=== PATIENT | male | born 1960 | race American Indian/Alaskan Native ===

== ENCOUNTER → 2017-05-29 | Outpatient (CLI) | payer MEDICARE ==
[2017-05-29 11:03] LABS: ALBUMIN/GLOBULIN RATIO 1.54 (1.00-1.93); ALKALINE PHOSPHATASE 65 U/L (45-117); ALT/SGPT 22 U/L (12-78); ANION GAP 5 MEQ/L (8-16); AST/SGOT 7 U/L (7-37); BLOOD UREA NITROGEN 11 MG/DL (7-18); CALCIUM LEVEL 9.2 MG/DL (8.5-10.1); CARBON DIOXIDE LEVEL 30 MEQ/L (21-32); CHLORIDE LEVEL 106 MEQ/L (98-107); CHOLESTEROL LEVEL 192 MG/DL (<200); CHOLESTEROL RISK RATIO 3.368 (<5); GLOMERULAR FILTRATION RATE > 60.0 (>56); GLUCOSE, FASTING 117 MG/DL (70-100); HDL CHOLESTEROL 57 MG/DL (>40); LDL CHOLESTEROL 104.8 MG/DL (<100); NON-HDL-C 135 MG/DL; POTASSIUM SERUM 4.3 MEQ/L (3.5-5.1); SODIUM LEVEL 141 MEQ/L (136-145); TOTAL PROTEIN 6.6 GM/DL (6.4-8.2); TRIGLYCERIDES LEVEL 151 MG/DL (<150)
[2017-05-29 11:47] LABS: CREATININE, URINE 87.5 MG/DL; MALB URINE SIEMENS 24.7 MG/L; MAU/CREAT RATIO 28.2 MCG/MG (0.0-30.0)
[2017-05-29 14:16] LABS: ESTIMATED AVERAGE GLUCOSE 143 MG/DL (60-110); HEMOGLOBIN A1c 6.6 %
== END ==
LOC: M LAB 08:53
DX: E11.65 Type 2 diabetes mellitus with hyperglycemia (principal)
CPT/HCPCS: 80053

== ENCOUNTER → 2017-09-20 | Outpatient (REF) | payer MEDICARE, BC ==
[2017-09-20 12:17] LABS: HEMATOCRIT 49.4 % (42.0-52.0); HEMOGLOBIN 16.1 g/dl (13.5-17.5); MEAN CORPUSCULAR HEMOGLOBIN 28.9 pg (27.0-33.0); MEAN CORPUSCULAR HGB CONC 32.6 g/dl (32.0-36.5); MEAN CORPUSCULAR VOLUME 88.7 fl (80.0-96.0); PLATELET COUNT, AUTOMATED 197 10^3/uL (150-450); RED BLOOD COUNT 5.57 10^6/uL (4.30-6.10); RED CELL DISTRIBUTION WIDTH 12.6 % (11.5-14.5); WHITE BLOOD COUNT 10.2 10^3/uL (4.0-10.0)
[2017-09-20 12:33] LABS: ALKALINE PHOSPHATASE 71 U/L (45-117); ALT/SGPT 24 U/L (12-78); ANION GAP 5 MEQ/L (8-16); AST/SGOT 16 U/L (7-37); BILIRUBIN,TOTAL 1.2 MG/DL (0.2-1.0); BLOOD UREA NITROGEN 12 MG/DL (7-18); CALCIUM LEVEL 8.8 MG/DL (8.5-10.1); CARBON DIOXIDE LEVEL 29 MEQ/L (21-32); CHLORIDE LEVEL 107 MEQ/L (98-107); CREATININE FOR GFR 0.84 MG/DL (0.70-1.30); GLOMERULAR FILTRATION RATE > 60.0 (>56); GLUCOSE, FASTING 104 MG/DL (70-100); POTASSIUM SERUM 4.3 MEQ/L (3.5-5.1); SODIUM LEVEL 141 MEQ/L (136-145)
[2017-09-20 12:34] LABS: ALBUMIN/GLOBULIN RATIO 1.48 (1.00-1.93); CHOLESTEROL LEVEL 185 MG/DL (<200); CHOLESTEROL RISK RATIO 3.627 (<5); HDL CHOLESTEROL 51 MG/DL (>40); LDL CHOLESTEROL 106.2 MG/DL (<100); MAGNESIUM LEVEL 2.2 MG/DL (1.8-2.4); NON-HDL-C 134 MG/DL; PSA SCREENING 1.22 NG/ML (< 4.0); TOTAL PROTEIN 6.7 GM/DL (6.4-8.2); TRIGLYCERIDES LEVEL 139 MG/DL (<150)
[2017-09-20 12:46] LABS: MAU/CREAT RATIO 17.3 MCG/MG (0.0-30.0)
[2017-09-20 13:03] LABS: ESTIMATED AVERAGE GLUCOSE 137 MG/DL (60-110); HEMOGLOBIN A1c 6.4 %
== END ==
LOC: M LABDRAW1 09:22
DX: J44.9 Chronic obstructive pulmonary disease, unspecified (principal); I10 Essential (primary) hypertension; E78.2 Mixed hyperlipidemia; E11.9 Type 2 diabetes mellitus without complications; Z12.5 Encounter for screening for malignant neoplasm of prostate
CPT/HCPCS: 83735

== ENCOUNTER → 2018-05-28 | Outpatient (REF) | payer MEDICARE, BC ==
[2018-05-28 13:59] LABS: ALBUMIN 3.8 GM/DL (3.2-5.2); ALT/SGPT 35 U/L (12-78); BILIRUBIN,TOTAL 1.1 MG/DL (0.2-1.0); BLOOD UREA NITROGEN 10 MG/DL (7-18); CALCIUM LEVEL 8.6 MG/DL (8.5-10.1); CARBON DIOXIDE LEVEL 26 MEQ/L (21-32); CHLORIDE LEVEL 102 MEQ/L (98-107); CHOLESTEROL LEVEL 189 MG/DL (<200); CHOLESTEROL RISK RATIO 4.725 (<5); CREATININE FOR GFR 0.86 MG/DL (0.70-1.30); GLOMERULAR FILTRATION RATE > 60.0 (>56); GLUCOSE, FASTING 273 MG/DL (70-100); HDL CHOLESTEROL 40 MG/DL (>40); LDL CHOLESTEROL 102 MG/DL (<100); NON-HDL-C 149 MG/DL; POTASSIUM SERUM 4.2 MEQ/L (3.5-5.1); SODIUM LEVEL 137 MEQ/L (136-145); TOTAL PROTEIN 6.7 GM/DL (6.4-8.2); TRIGLYCERIDES LEVEL 236 MG/DL (<150)
[2018-05-28 14:33] LABS: HEMOGLOBIN A1c 10.4 %
== END ==
LOC: M LABDRAW1 12:08
PROVIDERS: ATTEND Physician Assistant
DX: I10 Essential (primary) hypertension (principal); E78.2 Mixed hyperlipidemia; E11.9 Type 2 diabetes mellitus without complications; K21.9 Gastro-esophageal reflux disease without esophagitis

== ENCOUNTER → 2018-08-23 | Outpatient (REF) | payer MEDICARE, BC ==
[2018-08-23 12:02] LABS: HEMOGLOBIN A1c 8.4 %
[2018-08-23 12:49] LABS: ALT/SGPT 30 U/L (12-78); BILIRUBIN,TOTAL 0.8 MG/DL (0.2-1.0); BLOOD UREA NITROGEN 9 MG/DL (7-18); CALCIUM LEVEL 9.5 MG/DL (8.5-10.1); CARBON DIOXIDE LEVEL 31 MEQ/L (21-32); CHLORIDE LEVEL 103 MEQ/L (98-107); CHOLESTEROL LEVEL 221 MG/DL (<200); CHOLESTEROL RISK RATIO 4.092 (<5); CREATININE FOR GFR 0.89 MG/DL (0.70-1.30); GLOMERULAR FILTRATION RATE > 60.0 (>56); GLUCOSE, FASTING 151 MG/DL (70-100); HDL CHOLESTEROL 54 MG/DL (>40); LDL CHOLESTEROL 125 MG/DL (<100); MAGNESIUM LEVEL 2.3 MG/DL (1.8-2.4); NON-HDL-C 167 MG/DL; POTASSIUM SERUM 4.6 MEQ/L (3.5-5.1); SODIUM LEVEL 142 MEQ/L (136-145); TOTAL PROTEIN 6.9 GM/DL (6.4-8.2); TRIGLYCERIDES LEVEL 210 MG/DL (<150)
== END ==
LOC: M LABDRAW1 10:00
PROVIDERS: ATTEND Physician Assistant
DX: E11.9 Type 2 diabetes mellitus without complications (principal); I10 Essential (primary) hypertension; E78.2 Mixed hyperlipidemia; Z98.84 Bariatric surgery status

== ENCOUNTER → 2018-12-06 | Outpatient (REF) | payer MEDICARE, BC ==
[2018-12-06 12:26] LABS: ALBUMIN 3.8 GM/DL (3.2-5.2); ALT/SGPT 36 U/L (12-78); BLOOD UREA NITROGEN 9 MG/DL (7-18); CALCIUM LEVEL 8.7 MG/DL (8.5-10.1); CARBON DIOXIDE LEVEL 29 MEQ/L (21-32); CHLORIDE LEVEL 101 MEQ/L (98-107); CHOLESTEROL LEVEL 211 MG/DL (<200); CHOLESTEROL RISK RATIO 4.795 (<5); CREATININE FOR GFR 0.96 MG/DL (0.70-1.30); GLOMERULAR FILTRATION RATE > 60.0 (>56); GLUCOSE, FASTING 192 MG/DL (70-100); HDL CHOLESTEROL 44 MG/DL (>40); LDL CHOLESTEROL 113 MG/DL (<100); NON-HDL-C 167 MG/DL; POTASSIUM SERUM 4.4 MEQ/L (3.5-5.1); SODIUM LEVEL 137 MEQ/L (136-145); TOTAL PROTEIN 6.5 GM/DL (6.4-8.2); TRIGLYCERIDES LEVEL 272 MG/DL (<150)
[2018-12-06 13:53] LABS: HEMOGLOBIN A1c 8.2 %
== END ==
LOC: M LABDRAW1 09:04
PROVIDERS: ATTEND Physician Assistant
DX: Z12.5 Encounter for screening for malignant neoplasm of prostate (principal); I10 Essential (primary) hypertension; E78.2 Mixed hyperlipidemia; E11.9 Type 2 diabetes mellitus without complications
CPT/HCPCS: 36415; 80053; 80061; 83036; G0103

== ENCOUNTER → 2019-03-10 | Outpatient (REF) | payer MEDICARE, BC ==
[2019-03-10 15:46] LABS: ALT/SGPT 39 U/L (12-78); BLOOD UREA NITROGEN 11 MG/DL (7-18); CALCIUM LEVEL 9.2 MG/DL (8.8-10.2); CARBON DIOXIDE LEVEL 31 MEQ/L (21-32); CHLORIDE LEVEL 101 MEQ/L (98-107); CHOLESTEROL LEVEL 198 MG/DL (<200); CHOLESTEROL RISK RATIO 4.829 (<5); CREATININE FOR GFR 0.89 MG/DL (0.70-1.30); GLOMERULAR FILTRATION RATE > 60.0 (>49); GLUCOSE, FASTING 190 MG/DL (70-100); HDL CHOLESTEROL 41 MG/DL (>40); LDL CHOLESTEROL 104 MG/DL (<100); NON-HDL-C 157 MG/DL; POTASSIUM SERUM 4.2 MEQ/L (3.5-5.1); SODIUM LEVEL 136 MEQ/L (136-145); TOTAL PROTEIN 6.7 GM/DL (6.4-8.2); TRIGLYCERIDES LEVEL 267 MG/DL (<150)
[2019-03-10 16:04] LABS: HEMOGLOBIN A1c 9.2 %
== END ==
LOC: M LABDRAW1 13:29
PROVIDERS: ATTEND Physician Assistant
DX: I10 Essential (primary) hypertension (principal); E78.2 Mixed hyperlipidemia; E11.9 Type 2 diabetes mellitus without complications

== ENCOUNTER → 2019-06-13 | Outpatient (REF) | payer BC ==
[2019-06-13 14:05] LABS: ALBUMIN 3.9 GM/DL (3.2-5.2); ALT/SGPT 36 U/L (12-78); BILIRUBIN,TOTAL 0.9 MG/DL (0.2-1.0); BLOOD UREA NITROGEN 11 MG/DL (7-18); CALCIUM LEVEL 9.1 MG/DL (8.8-10.2); CARBON DIOXIDE LEVEL 28 MEQ/L (21-32); CHLORIDE LEVEL 103 MEQ/L (98-107); CHOLESTEROL LEVEL 214 MG/DL (<200); CHOLESTEROL RISK RATIO 4.755 (<5); GLOMERULAR FILTRATION RATE > 60.0 (>49); GLUCOSE, FASTING 173 MG/DL (70-100); HDL CHOLESTEROL 45 MG/DL (>40); LDL CHOLESTEROL 120 MG/DL (<100); NON-HDL-C 169 MG/DL; POTASSIUM SERUM 4.5 MEQ/L (3.5-5.1); SODIUM LEVEL 139 MEQ/L (136-145); TOTAL PROTEIN 6.8 GM/DL (6.4-8.2); TRIGLYCERIDES LEVEL 246 MG/DL (<150)
[2019-06-13 15:33] LABS: HEMOGLOBIN A1c 8.6 %
== END ==
LOC: M SFHCADAM 09:38
PROVIDERS: ATTEND Physician Assistant
DX: I10 Essential (primary) hypertension (principal); E11.65 Type 2 diabetes mellitus with hyperglycemia; E78.2 Mixed hyperlipidemia

== ENCOUNTER → 2019-10-08 | Outpatient (REF) | payer BC ==
[2019-10-08 15:07] LABS: ALBUMIN 3.9 GM/DL (3.2-5.2); ALT/SGPT 32 U/L (12-78); BLOOD UREA NITROGEN 8 MG/DL (7-18); CALCIUM LEVEL 8.8 MG/DL (8.8-10.2); CARBON DIOXIDE LEVEL 29 MEQ/L (21-32); CHLORIDE LEVEL 103 MEQ/L (98-107); GLOMERULAR FILTRATION RATE > 60.0 (>49); GLUCOSE, FASTING 133 MG/DL (70-100); POTASSIUM SERUM 4.3 MEQ/L (3.5-5.1); SODIUM LEVEL 137 MEQ/L (136-145); TOTAL PROTEIN 6.9 GM/DL (6.4-8.2)
[2019-10-08 15:39] LABS: HEMOGLOBIN A1c 8.3 %
== END ==
LOC: M LABDRWAD 12:39
PROVIDERS: ATTEND Family Medicine
DX: E11.8 Type 2 diabetes mellitus with unspecified complications (principal)

== ENCOUNTER → 2019-11-21 | Outpatient (REF) | payer BC ==
[2019-11-21 17:53] LABS: ALBUMIN 3.9 GM/DL (3.2-5.2); ALT/SGPT 36 U/L (12-78); BILIRUBIN,TOTAL 1.1 MG/DL (0.2-1.0); BLOOD UREA NITROGEN 9 MG/DL (7-18); CALCIUM LEVEL 9.3 MG/DL (8.8-10.2); CARBON DIOXIDE LEVEL 29 MEQ/L (21-32); CHLORIDE LEVEL 102 MEQ/L (98-107); CHOLESTEROL LEVEL 216 MG/DL (<200); CHOLESTEROL RISK RATIO 5.538 (<5); CREATININE FOR GFR 0.91 MG/DL (0.70-1.30); GLOMERULAR FILTRATION RATE > 60.0 (>49); GLUCOSE, FASTING 178 MG/DL (70-100); HDL CHOLESTEROL 39 MG/DL (>40); LDL CHOLESTEROL 124 MG/DL (<100); NON-HDL-C 177 MG/DL; POTASSIUM SERUM 4.6 MEQ/L (3.5-5.1); SODIUM LEVEL 136 MEQ/L (136-145); TOTAL PROTEIN 6.9 GM/DL (6.4-8.2); TRIGLYCERIDES LEVEL 263 MG/DL (<150)
== END ==
LOC: M SFHCADAM 13:10
PROVIDERS: ATTEND Physician Assistant
DX: I10 Essential (primary) hypertension (principal); E78.2 Mixed hyperlipidemia; E11.65 Type 2 diabetes mellitus with hyperglycemia

== ENCOUNTER → 2020-02-24 | Outpatient (REF) | payer MEDICARE ==
[2020-02-24 14:11] LABS: HEMOGLOBIN A1c 10.6 %
[2020-02-24 14:20] LABS: ALBUMIN 3.9 GM/DL (3.2-5.2); ALT/SGPT 32 U/L (12-78); BLOOD UREA NITROGEN 10 MG/DL (7-18); CALCIUM LEVEL 9.4 MG/DL (8.8-10.2); CARBON DIOXIDE LEVEL 32 MEQ/L (21-32); CHLORIDE LEVEL 98 MEQ/L (98-107); CHOLESTEROL LEVEL 230 MG/DL (<200); CHOLESTEROL RISK RATIO 5.227 (<5); CREATININE FOR GFR 0.96 MG/DL (0.70-1.30); GLOMERULAR FILTRATION RATE > 60.0 (>49); GLUCOSE, FASTING 271 MG/DL (70-100); HDL CHOLESTEROL 44 MG/DL (>40); LDL CHOLESTEROL 124 MG/DL (<100); NON-HDL-C 186 MG/DL; POTASSIUM SERUM 4.4 MEQ/L (3.5-5.1); SODIUM LEVEL 134 MEQ/L (136-145); TRIGLYCERIDES LEVEL 308 MG/DL (<150)
== END ==
LOC: M SFHCADAM 08:54
PROVIDERS: ATTEND Physician Assistant
DX: I10 Essential (primary) hypertension (principal); E78.2 Mixed hyperlipidemia; E11.9 Type 2 diabetes mellitus without complications; Z12.5 Encounter for screening for malignant neoplasm of prostate
CPT/HCPCS: 80053; 80061; 83036; G0103

== ENCOUNTER → 2020-08-20 | Outpatient (REF) | payer MEDICARE ==
[2020-08-20 14:11] LABS: HEMOGLOBIN A1c 7.7 %
[2020-08-20 14:22] LABS: BLOOD UREA NITROGEN 9 MG/DL (7-18); CALCIUM LEVEL 8.9 MG/DL (8.8-10.2); CARBON DIOXIDE LEVEL 30 MEQ/L (21-32); CHLORIDE LEVEL 101 MEQ/L (98-107); CREATININE FOR GFR 0.81 MG/DL (0.70-1.30); GLOMERULAR FILTRATION RATE > 60.0 (>49); GLUCOSE, FASTING 150 MG/DL (70-100); POTASSIUM SERUM 4.5 MEQ/L (3.5-5.1); SODIUM LEVEL 135 MEQ/L (136-145)
== END ==
LOC: M SFHCADAM 10:09
PROVIDERS: ATTEND Physician Assistant
DX: E11.65 Type 2 diabetes mellitus with hyperglycemia (principal)

== ENCOUNTER 2020-11-27 14:56 | Emergency (ER) | payer MEDICARE ==
[~2020-11-27] VITALS: Ht 172.7 cm; Wt 133.6 kg
--- OUTSIDE RECORDS SUMMARY | 2020-11-27 15:04 | CCD ---
Author Author [facility] Organization [facility] Address Unknown Phone Unavailable Care Team Providers Care Protection Specialist Name Role Phone Sarah Hernandez Unavailable PROBLEMS Type Condition ICD9-CM Code GAP08-EU Code Onset Dates Condition S tatus W/U Status Risk SNOMED Code Notes Problem Gastroesophageal reflux disease, esophagitis pre sence not specified K21.9 Active confirmed 492842465 Problem Morbid obesity due to excess calories E66.01 Ac tive confirmed 471934851 Still losing weight Problem Essential hypertension I10 Active confirmed 94016964 Well- controlled on losartan 100 mg a day, no medication changes have been made Problem Type 2 diabetes mellitus with hyperglycemia E11.65 Active confirmed 64127555 Problem Chronic obstructive pulmonary disease, unspecified COPD ty pe J44.9 Active confirmed 19436148 Stable on curren t meds, he is encouraged to quit smoking Problem terminal gauger (current) use of insulin Z79.4 Activ e confirmed 309408146 Problem Smoker F17.200 Active confirmed 01667754 cou nseling on smoking cessation Problem Mixed hyperlipidemia E78.2 Active confirmed 225637508 Alin is still reluctant to restart Simvastatin, so he promises to work on diet, and we will recheck his lipids in 3 months Problem History of gastric bypass Z98.84 Active confirmed 742092313 Problem Other chronic pain G89.29 Active confirmed 8 3393888 Continue rare use of ibuprofen 800 and Tylenol with Codeine as needed ALLERGIES No Known Allergies ENCOUNTERS from 1959 to 2020-09-05 Encounter Location Date Provider Diagnosis [address] [place] [id number] Aug, Sarah David Essential hypertension I10 ; Mixed hyper lipidemia E78.2 ; Type 2 diabetes mellitus with hyperglycemia, without long-term current use of insulin E11.65 ; Morbid obesity due to excess calories E66.01 ; History of gastric bypass Z98.84 ; Other chronic pain G89.29 ; Low back pain M54.5 ; Smoker F17.200 ; Chronic obstructive pulmonary disease, unspecified COPD type J44.9 ; Blood in stool K92.1 ; Type 2 diabetes mellitus with hyperglycemia E11.65 and Special screening for malignant neoplasm of prostate Z12.5 IMMUNIZATIONS Vaccine Route Administration Date Status Pneumococcal Adult 0.5mL Pneumovax 23 IM Intramuscular Dec 06 018 Administered Influenza 6mo & up Fluzone Unknown Oct 30, 2018 Admin istered Influenza 6mo & up Fluzone Unknown Nov 20, 2017 Admin istered SOCIAL HISTORY Tobacco Use: Social History Observation Description Date Details (start date - stop date) Current Smoker Sex Assigned At : Social History Observation Description Sex Assigned At Unknown Education: Question Answer Notes Level of Education: Not finished High School Audit Question Answer Notes Total Score: 0 Interpretation: Alcohol Education Language: Question Answer Notes Languages spoken: Bangladeshi Sexual Hx: Question Answer Notes Had sex in the last 12 months (vaginal, oral, or anal)? Yes with Women only Drug and Alcohol Question Answer Notes Total Score: 0 Interpretation: No problems reported Alcohol Screening: Question Answer Notes Did you have a drink containing alcohol in the past year? No Points 0 Interpretation Negative BMI Care Goal Follow-Up Question Answer Notes Above Normal BMI Follow-Up Dietary management educatio n, guidance, and counseling Tobacco Use: Question Answer Notes Are you a: current smoker started at age 15, l ongest abstinence was 18 months, trigger was driving Patient counseled on the dangers of tobacco use and urged to quit: 02/25/2020 How many cigarettes a day do you smoke? 6-10 Are you interested in quitting? Ready to quit Counseled the patient on tobacco use, cessation provided 07/2019 REASON FOR REFERRAL No Information VITAL SIGNS Weight 296.4 lbs Aug, Height 67 in Aug, BMI 46.42 kg/m2 Aug, Heart Rate 119 /min Aug, Respiratory Rate 18 /min Aug, Temperature 96.8 degrees Fahrenheit Aug, Oximetry 97 Aug, Blood pressure systolic 140 mm Hg Aug, Blood pressure diastolic 90 mm Hg Aug, MEDICATIONS Medication SIG (Take, Route, Frequency, Duration) Notes Start Da te End Date Status Acetaminophen-Codeine #3 300-30 MG 1 tablet Orally Onc e a day as needed for 30 Days Active HumaLOG 100 UNIT/ML 10 units before meals Subcut aneous Three times a day for 90 days Feb, Active Blood Glucose Test - for GE100 meter, DM=E11.65 I n Vitro four times daily for 30 Days Feb, Active Insulin Syringe 31G X 5/16" 1 ML as directed SQ Three times a da y for 33 days Feb, Active Losartan Potassium 100 MG 1 tablet Orally Once a day for 90 days Dec, Active Glucometer GE100 meter for DM (E11.65) subcutaneously four times daily for 365 days Feb, Active Fluconazole 100 MG 2 tabs on day 1 then 1 tab d aily x days 2-14 Orally Once a day for 14 days Apr, Active Nasonex 50 MCG/ACT 2 sprays in each nostril Nasally Once a day for 90 days Active Breo Ellipta 100-25 MCG/INH 1 puff Inhalation Once a day for 90 days Active Albuterol Sulfate HFA 108 MCG/ACT 1 puff as needed Inh alation every 4 hrs for 90 days Mar, Active Lancets - for DM, E11.65 subcutaneously four times daily f or 30 Days Feb, Active Asmanex HFA 100 MCG/ACT 2 puffs Inhalation Twice a day for 90 days Active glipiZIDE ER 10 MG 1 tablet with breakfast Orally Twice a day fo r 90 days June, Active metFORMIN HCl ER 500 MG 2 tablets Orally Twice a day for 90 days Active Ibuprofen 800 MG 1 tablet with food or milk a s needed Orally Once a day as needed for 30 days Active PROCEDURES No Information RESULTS No Results REASON FOR VISIT htn, dm, lipids, med refill glipizide 90 days, pt s/t when he has a bm he has bl ood, [facility] scope, Dr. Mckeon, ordered colonoscopy, needs scope and EGD for epigastric pain and rectal bleeding MEDICAL (GENERAL) HISTORY Type Description Date Medical History hypertension Medical History hyperlipidemia Medical History diabetes Medical History morbid obesity, status post gastric bypa ss Medical History COPD Medical History GERD Surgical History appendectomy 1979 Surgical History gastric bypass (stapled) 2015 Hospitalization History surgery as above Goals Section No Information Health Concerns No Information MEDICAL EQUIPMENT No Information MENTAL STATUS No Information FUNCTIONAL STATUS No Information ASSESSMENTS Encounter Date Diagnosis Assessment Notes Treatment Notes Treatm ent Clinical Notes Aug, Essential hypertension (ICD-10 - I10) We ll-controlled on losartan 100 mg a day, no medication changes have been made Aug, Mixed hyperlipidemia (ICD-10 - E78.2) Ivory milton is still reluctant to restart Simvastatin, so he promises to work on diet, and we will recheck his lipids in 3 months Aug, Type 2 diabetes mellitus wit h hyperglycemia, without long-term current use of insulin (ICD-10 - E11.65) He'll continue metformin and glipizide, and work on lifestyle changes Aug, Morbid obesity due to excess calories (I CD-10 - E66.01) Still losing weight Aug, History of gastric bypass (ICD-10 - Z98.84) Aug, Other chronic pain (ICD-10 - G89.29) Con tinue rare use of ibuprofen 800 and Tylenol with Codeine as needed Aug, Low back pain (ICD-10 - M54.5) Aug, Smoker (ICD-10 - F17.200) counseling on smoking cessation Aug, Chronic obstructive pulmonar y disease, unspecified COPD type (ICD- 10 - J44.9) Stable on current meds, he is encouraged to quit smoki ng Aug, Blood in stool (ICD-10 - K92.1) Aug, Type 2 diabetes mellitus with hyperglycemia (ICD -10 - E11.65) Aug, Special screening for malign ant neoplasm of prostate (ICD-10 - Z12.5) PLAN OF TREATMENT Medication Medication Name Sig Start Date Stop Date Insulin Syringe 31G X 5/16" 1 ML as directed SQ Three times a day for 33 days Feb, glipiZIDE ER 10 MG 1 tablet with breakfast Orally Twice a d ay for 90 days June, Blood Glucose Test - for GE100 meter, DM=E11.65 I n Vitro four times daily for 30 Days Feb, Losartan Potassium 100 MG 1 tablet Orally Once a day for 90 days Dec, Fluconazole 100 MG 2 tabs on day 1 then 1 tab d aily x days 2-14 Orally Once a day for 14 days Apr, Nasonex 50 MCG/ACT 2 sprays in each nostril Nasally Once a day f or 90 days metFORMIN HCl ER 500 MG 2 tablets Orally Twice a day for 90 days Breo Ellipta 100-25 MCG/INH 1 puff Inhalation Once a day for 90 days HumaLOG 100 UNIT/ML 10 units before meals Subcut aneous Three times a day for 90 days Feb, Lancets - for DM, E11.65 subcutaneously four times daily for 30 Days Feb, Asmanex HFA 100 MCG/ACT 2 puffs Inhalation Twice a day for 90 da ys Ibuprofen 800 MG 1 tablet with food or milk a s needed Orally Once a day as needed for 30 days Albuterol Sulfate HFA 108 MCG/ACT 1 puff as needed Inh alation every 4 hrs for 90 days Mar, Acetaminophen-Codeine #3 300-30 MG 1 tablet Orally Onc e a day as needed for 30 Days Future Test Test Name Order Date CBC - Complete Blood Count [id number] Comprehensive Metabolic Profile (CMP) [id number] HEMOGLOBIN A1c [id number] LIPID PANEL (CARDIAC RISK) [id number] PSA SCREENING [id number] Next Appt Details 3 Months Reason: Provider Name:Sarah Hernandez, 10-2 5 08:30:00 AM, [address], , [place], [address], Insurance Providers Payer Name Payer Address Payer Phone Insured Name Patient Relati onship to Insured Coverage Start Date Coverage End Date MEDICARE BLUE PPO [address] [facility] [id number] [place] self
--- OUTSIDE RECORDS SUMMARY | 2020-11-27 15:04 | CCD | Continuity of Care Document ---
Author Author Sagar WOODS M.D. Organization Unknown Address [address] [place] [id number] Phone [phone] Care Team Providers Care Manager Surgical Name Role Phone Sarah Hernandez AUTM [phone] Problems Active Problems Provider Date Screening for malignant neoplasm of colon Jorge lim M.D. Onset: 10/28/2020 Social History Type Date Description Comments Sex Unknown ETOH Use Denies alcohol use Tobacco Use Start: Unknown Patient is a current smoker, smo kes every day Allergies and adverse reactions Description No Known Drug Allergies Medications Active Medications SIG Qnty Indications Ordering Provide r Date Suprep Bowel Prep Kit 17.5-3.13-1.6GM/177ML Solution use as directed 354ml Jorge Woods M.D. 10/28/[address] 1 cap by mouth every morning 90caps Jorge Woods M.D. 021 Glipizide ER 10mg Tablets ER 24HR Take One Tablet By Mouth Twice A Day Unknown Humalog 100Unit/ML Solution Inject 10 Units Before Meals Three Times A Day Unknown Metformin HCL ER 500mg Tablets ER 24HR Take Two Tablets By Mouth Twice A Day Unknown Losartan Potassium 100mg Tablets Take One Tablet By Mouth Every Day Unknown Albuterol Sulfate HFA 108(90Base) mcg/Act Aerosol Inhale One puff By Mouth Every 4 Hours Un known Nasonex 50mcg/Act Suspension Unknown Immunizations Description No Information Available Vital Signs Date Vital Result Comment 10/28/2020 10:30am Height 68 inches 5'8" Weight 197.00 lb BP Systolic 130 mmHg BP Diastolic 84 mmHg Heart Rate 103 /min BMI (Body Mass Index) 30.0 kg/m2 Weight 89.359 kg Body Temperature 97.2 F Results Description No Information Available Procedures Date Code Description Status 10/28/2020 27094 Office/Outpatient New Low MDM 30 -44 Minutes Completed Medical Devices Description No Information Available Encounters Type Date Location Provider Dx Diagnosis Office Visit 10/28/2020 10:00a Main Office Jorge Woods M.D. Z 12.11 Encounter for screening for malignant neoplasm of colon Assessments Date Code Description Provider 10/28/2020 Z12.11 Screening for malignant neoplasm of colon Joreg Woods M.D. Plan of Treatment Future Appointment(s):* 12/22/2020 9:45 am - Jorge Woods M.D. at Main Office 10/28/2020 - Jorge Woods M.D.* Z12.11 Screening for malignant neoplasm of colon* Comments:* 60 yo wm who presents for a colonoscopy due to a h/o colonic polyps. Last scope was in 2015. No c/o abdominal pain, weight loss, change in bowel habits, or rectal bleeding. No family h/o colon cancer. No h/o chest pain, or sob. Pt had a gastric sleeve. Plan:1.Schedule patient for a colonoscopy.2.Informed consent given to the patient.3.Pt. advised to stop aspirin,plavix, and anticoagulants at least 3 to 7 days prior to the procedure. Functional Status Description No Information Available Mental Status Description No Information Available Referrals Description No Information Available
--- OUTSIDE RECORDS SUMMARY | 2020-11-27 15:04 | CCD ---
Author Author [facility] Organization [facility] Address Unknown Phone Unavailable Care Team Providers Care Claims Specialist Name Role Phone Cesario Woods MD Unavailable Unavailable Cesario Woods MD Unavailable Unavailable Cesario Woods MD Unavailable Unavailable Cesario Woods MD Unavailable Unavailable Cesario Woods MD Unavailable Unavailable Cesario Woods MD Unavailable Unavailable Cesario Woods MD Unavailable Unavailable Cesario Woods MD Unavailable Unavailable Cesario Woods MD Unavailable Unavailable Peggy, S Jorge MD Unavailable Unavailable Peggy, S Jorge MD Unavailable Unavailable Peggy, S Jorge MD Unavailable Unavailable Peggy, S Jorge MD Unavailable Unavailable Peggy, S Jorge MD Unavailable Unavailable Peggy, S Jorge MD Unavailable Unavailable Peggy, S Jorge MD Unavailable Unavailable Peggy, S Jorge MD Unavailable Unavailable Peggy, S Jorge MD Unavailable Unavailable Peggy, S Jorge MD Unavailable Unavailable Peggy, S Jorge MD Unavailable Unavailable Peggy, S Jorge MD Unavailable Unavailable Peggy, S Jorge MD Unavailable Unavailable Peggy, S Jorge MD Unavailable Unavailable Peggy, S Jorge MD Unavailable Unavailable Peggy, S Jorge MD Unavailable Unavailable Peggy, S Jorge MD Unavailable Unavailable Peggy, S Jorge MD Unavailable Unavailable Peggy, S Jorge MD Unavailable Unavailable Peggy, S Jorge MD Unavailable Unavailable Peggy, S Jorge MD Unavailable Unavailable Peggy, S Jorge MD Unavailable Unavailable Peggy, S Jorge MD Unavailable Unavailable Peggy, S Jorge MD Unavailable Unavailable Peggy, S Jorge MD Unavailable Unavailable Peggy, S Jorge MD Unavailable Unavailable Peggy, S Jorge MD Unavailable Unavailable Peggy, S Jorge MD Unavailable Unavailable Peggy, S Jorge MD Unavailable Unavailable Peggy, S Jorge MD Unavailable Unavailable Peggy, S Jorge MD Unavailable Unavailable Peggy, S Jorge MD Unavailable Unavailable Peggy, S Jorge MD Unavailable Unavailable Peggy, S Jorge MD Unavailable Unavailable Peggy, S Jorge MD Unavailable Unavailable Peggy, S Jorge MD Unavailable Unavailable Peggy, S Jorge MD Unavailable Unavailable Peggy, S Jorge MD Unavailable Unavailable Peggy, S Jorge MD Unavailable Unavailable Peggy, S Jorge MD Unavailable Unavailable Peggy, S Jorge MD Unavailable Unavailable Leonard Cesario, E[place] Unavailable Re-disclosure Warning The records that you are about to access may contain information from federally-assisted alcohol or drug abuse programs. If such information is present, then the following federally mandated warning applies: This information has been disclosed to you from records protected by federal confidentiality rules (42 CFR part 2). The federal rules prohibit you from making any further disclosure of this information unless further disclosure is expressly permitted by the written consent of the person to whom it pertains or as otherwise permitted by 42 CFR part 2. A general authorization for the release of medical or other information is NOT sufficient for this purpose. The Federal rules restrict any use of the information to criminally investigate or prosecute any alcohol or drug abuse patient.The records that you are about to access may contain highly sensitive health information, the redisclosure of which is protected by Article 27-F of the [facility] Public Health law. If you continue you may have access to information: Regarding HIV / AIDS; Provided by facilities licensed or operated by the [facility] Office of Mental Health; or Provided by the [facility] Office for People With Developmental Disabilities. If such information is present, then the following [facility] mandated warning applies: This information has been disclosed to you from confidential records which are protected by state law. State law prohibits you from making any further disclosure of this information without the specific written consent of the person to whom it pertains, or as otherwise permitted by law. Any unauthorized further disclosure in violation of state law may result in a fine or senior care sentence or both. A general authorization for the release of medical or other information is NOT sufficient authorization for further disc losure. 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 -NO Allergies and Adverse Reactions Type Description Substance Reaction Status Data Source(s ) Allergy to substance No Known Allergies No known allergies (situation ) [place] ([facility]) Family History Family Member Name Family Member Gender Family Member Status Date o f Status Description Data Source(s) Unknown Female Problem [facility] ([facility]) Unknown Female Problem [facility] ([facility]) Unknown Female Problem [facility] ([facility]) Unknown Female Problem [facility] ([facility]) Unknown Female Problem [facility] ([facility]) Unknown Female Problem MED[facility] ([facility]) Encounters Encounter Providers Location Date Indications Data Source(s ) Outpatient Attender: Jorge Woods MD Main Office 10/28/2020 10:00:00 AM EDT [facility] ([facility]) [place] [address] [place] [address] 08/25/2020 12:00:00 AM EDT eCW1 ([facility]) [place] [address] [place] [address] 08/17/2020 12:00:00 AM EDT [facility]1 [facility] [place] [address] [place] [address] 08/16/2020 12:00:00 AM EDT [facility]CW1 [facility] [place] [address] [place] [address] 06/03/2020 12:00:00 AM EDT eCW1 [facility] [place] [address] [place] [address] 05/26/2020 12:00:00 AM EDT eCW1 [facility] [place] [address] [place] [address] 05/10/2020 12:00:00 AM EDT eCW1 ([facility]) <td ID="encounterTypeDescriptionID0">D D ental Office Visit - 30</td><td>Ely Valle DDS</td><td>[facility]</td><td>04/27/2020</td><td>3:29PM</td><td>3:55PM</td><td></td>Unknown Attender: Ely Valle DDS [facility] 04/27/2020 03:29:00 PM EDT - 04/27/2020 03:55:00 PM EDT [place] ([facility]) Unknown [address] [place] [address] 04/23/2020 12:00:00 AM EDT eCW1 ([facility] [place] [address] [place] [address] 03/02/2020 12:00:00 AM EST eCW1 ([facility] [place] [address] [place] [address] 03/02/2020 12:00:00 AM EST eCW1 ([facility] [place] [address] [place] [address] 02/25/2020 12:00:00 AM EST eCW1 ([facility]) [place] [address] [place] [address] 02/25/2020 12:00:00 AM EST eCW1 ([facility]) [place] [address] [place] [address] 02/23/2020 12:00:00 AM EST eCW1 ([facility]) [place] [address] [place] [address] 01/27/2020 12:00:00 AM EST eCW1 ([facility]) [place] [address] [place] [address] 01/13/2020 12:00:00 AM EST eCW1 ([facility]) [place] [address] [place] [address] 12/03/2019 12:00:00 AM EDT eCW1 ([facility]) Outpatient [address] [place] [address] 11/26/2019 12:00:00 AM EDT eCW1 ([facility]) Unknown [address] [place] [address] 11/25/2019 12:00:00 AM EDT eCW1 ([facility]) [place] [address] [place] [address] 11/06/2019 12:00:00 AM EDT eCW1 ([facility]) [place] [address] [place] [address] 10/28/2019 12:00:00 AM EDT eCW1 ([facility]) [place] [address] [place] [address] 10/28/2019 12:00:00 AM EDT eCW1 ([facility]) [place] [address] [place] [address] 10/28/2019 12:00:00 AM EDT eCW1 ([facility]) Immunizations Vaccine Date Status Description Data Source(s) COVID-19 VACCINE Moderna 05/25/2020 12:00:00 AM EDT completed [facility] Vaccine Series Complete: YESThis Data wa s Submitted to [facility] Via [employer]. COVID-19 VACC,MRNA(MODERNA)/PF 05/25/2020 12:00:00 AM EDT completed [facility] COVID-19 VACCINE Moderna 04/23/2020 12:00:00 AM EDT completed [facility] Vaccine Series Complete: NOThis Data was Submitted to [facility] Via [employer]. COVID-19 VACCINE, [id number], LNP-S (MODERNA)/PF 04/23/2020 1 2:00:00 AM EDT completed [facility] Medications Medication Brand Name Start Date Product Form Dose Route Admi nistrative Instructions Pharmacy Instructions Status Indications Reaction Description Data Source(s) 40 mg 10/28/2020 12:00:00 AM EDT capsule,delayed release (DR/EC) 90 TAKE ONE CAPSULE BY MOUTH EVERY MORNING TAKE ONE CAPSULE BY MOUTH EVERY MORNING SOLD: 10/29/2020 [facility] Omeprazole 40 MG Delayed Release Oral Capsule Omeprazole 10/28/2020 12:00:00 AM EDT ORAL active [facility] ([employer]) Suprep Bowel Prep Kit Suprep Bowel Prep Kit 10/28/2020 12:00:00 AM EDT active [facility] ([facility] [employer]) 1 mL 31 gauge x 5/16 09/04/2020 12:00:00 AM EDT syringe 10 0 USE DIRECTED THREE TIMES A DAY USE DIRECTED THREE TIMES A DAY SOLD: 09/06/2020 [facility] 100 mg 09/04/2020 12:00:00 AM EDT tablet 90 TAKE ONE TABLET BY MOUTH EVERY DAY TAKE ONE TABLET BY MOUTH EVERY DAY SOLD: 09/06/2020 [facility] BLOOD SUGAR DIAGNOSTIC 09/04/2020 12:00:00 AM EDT strip 100 USE TO TEST BLOOD GLUCOSE FOUR TIMES A DAY USE TO TEST BLOOD GLUCOSE FOUR TIMES A DAY SOLD: 09/06/2020 [facility] 800 mg 09/04/2020 12:00:00 AM EDT tablet 30 TAKE ONE TABLET BY MOUTH EVERY DAY NEEDED - TAKE WITH FOOD OR MILK TAKE ONE TABLET BY MOUTH EVERY DAY NEEDED - TAKE WITH FOOD OR MILK SOLD: 09/06/2020 [facility] 100 unit/mL 09/04/2020 12:00:00 AM EDT solution 30 INJECT 10 UNITS BEFORE MEALS THREE TIMES A DAY INJECT 10 UNITS BEFORE MEALS THREE TIMES A DAY SOLD: 09/06/2020 [facility] 90 mcg/actuation 09/04/2020 12:00:00 AM EDT HFA aerosol inha ler 25 INHALE ONE PUFF BY MOUTH EVERY 4 HOURS INHALE ONE PUFF BY MOUTH EVERY 4 HOURS SOLD: 09/06/2020 [facility] Acetaminophen 300 MG / Codeine Phosphate 30 MG Oral Ta blet 300-30 mg ACETAMINOPHEN WITH CODEINE 09/03/2020 12:00:00 AM EDT tablet 7 TAKE ONE TABLET BY MOUTH EVERY DAY NEEDED, MAXIMUM DAILY DOSE = 1 TAKE ONE TABLET BY MOUTH EVERY DAY NEEDED, MAXIMUM DAILY DOSE = 1 SOLD: 09/06/2020 [facility] 10 mg 08/25/2020 12:00:00 AM EDT tablet extended release 24hr 180 TAKE ONE TABLET BY MOUTH TWICE A DAY TAKE ONE TABLET BY MOUTH TWICE A DAY SOLD: 08/27/2020 [facility] 24 HR Metformin hydrochloride 500 MG Extended Release Oral T ablet METFORMIN HCL 08/19/2020 12:00:00 AM EDT tablet extended release 24 hr 360 TAKE TWO TABLETS BY MOUTH TWICE A DAY TAKE TWO TABLETS BY MOUTH TWICE A DAY SOLD: 11/24/2020 [facility] 24 HR Metformin hydrochloride 500 MG Extended Release Oral T ablet METFORMIN HCL 08/19/2020 12:00:00 AM EDT tablet extended release 24 hr 360 TAKE TWO TABLETS BY MOUTH TWICE A DAY TAKE TWO TABLETS BY MOUTH TWICE A DAY SOLD: 08/20/2020 [facility] 100 mg 06/07/2020 12:00:00 AM EDT tablet 90 TAKE ONE TABLET BY MOUTH EVERY DAY TAKE ONE TABLET BY MOUTH EVERY DAY SOLD: 06/09/2020 [facility] Clindamycin 150 MG Oral Capsule Clindamycin HCl 150 MG Clind amycin HCl 150 MG 05/26/2020 12:00:00 AM EDT 2.0 {capsules} active eCW1 ([facility]) Clindamycin 150 MG Oral Capsule Clindamycin HCl 150 MG Clind amycin HCl 150 MG 05/26/2020 12:00:00 AM EDT 2.0 {capsules} active Clindamycin HCl 150 MG eCW1 ([facility]) 150 mg 05/26/2020 12:00:00 AM EDT capsule 60 TAKE TWO CAPSULES BY MOUTH THREE TIMES A DAY FOR 10 DAYS TAKE TWO CAPSULES BY MOUTH THREE TIMES A DAY FOR 10 DAYS SOLD: 05/26/2020 [facility] Clindamycin 150 MG Oral Capsule Clindamycin HCl 150 MG Clind amycin HCl 150 MG 05/26/2020 12:00:00 AM EDT 2.0 {capsules} active Clindamycin HCl 150 MG eCW1 ([facility]) Clindamycin 150 MG Oral Capsule Clindamycin HCl 150 MG Clind amycin HCl 150 MG 05/26/2020 12:00:00 AM EDT 2.0 {capsules} active Clindamycin HCl 150 MG eCW1 ([facility]) Glucometer UNK 03/02/2020 12:00:00 AM EST active Glucometer eCW1 ([facility]) Lancets - Lancets - 03/02/2020 12:00:00 AM EST act eamon Lancets - eCW1 ([facility]) Glucometer UNK 03/02/2020 12:00:00 AM EST active Glucometer eCW1 ([facility]) Blood Glucose Test - Blood Glucose Test - 03/02/2020 12:00:00 AM EST active Blood Glucose Test - eCW1 ([facility]) Glucometer UNK 03/02/2020 12:00:00 AM EST active Glucometer eCW1 ([facility]) Lancets - Lancets - 03/02/2020 12:00:00 AM EST act eamon eCW1 ([facility]) Lancets - Lancets - 03/02/2020 12:00:00 AM EST act eamon Lancets - eCW1 ([facility]) Blood Glucose Test - Blood Glucose Test - 03/02/2020 12:00:00 AM EST active Blood Glucose Test - eCW1 ([facility]) Blood Glucose Test - Blood Glucose Test - 03/02/2020 12:00:00 AM EST active Blood Glucose Test - eCW1 ([facility]) Blood Glucose Test - Blood Glucose Test - 03/02/2020 12:00:00 AM EST active Blood Glucose Test - eCW1 ([facility]) Glucometer UNK 03/02/2020 12:00:00 AM EST active Glucometer eCW1 ([facility]) Glucometer UNK 03/02/2020 12:00:00 AM EST active Glucometer eCW1 ([facility]) Glucometer UNK 03/02/2020 12:00:00 AM EST active eCW1 ([facility]) Blood Glucose Test - Blood Glucose Test - 03/02/2020 12:00:00 AM EST active eCW1 ([facility]) Blood Glucose Test - Blood Glucose Test - 03/02/2020 12:00:00 AM EST active Blood Glucose Test - eCW1 ([facility]) Lancets - Lancets - 03/02/2020 12:00:00 AM EST act eamon Lancets - eCW1 ([facility]) Lancets - Lancets - 03/02/2020 12:00:00 AM EST act eamon Lancets - eCW1 ([facility]) Lancets - Lancets - 03/02/2020 12:00:00 AM EST act eamon Lancets - eCW1 ([facility]) Glucometer UNK 03/02/2020 12:00:00 AM EST active Glucometer eCW1 ([facility]) Blood Glucose Test - Blood Glucose Test - 03/02/2020 12:00:00 AM EST active Blood Glucose Test - eCW1 ([facility]) Lancets - Lancets - 03/02/2020 12:00:00 AM EST act eamon Lancets - eCW1 ([facility]) Blood Glucose Test - Blood Glucose Test - 03/02/2020 12:00:00 AM EST active Blood Glucose Test - eCW1 ([facility]) Lancets - Lancets - 03/02/2020 12:00:00 AM EST act eamon Lancets - eCW1 ([facility]) Glucometer UNK 03/02/2020 12:00:00 AM EST active Glucometer eCW1 ([facility]) Lancets - Lancets - 03/02/2020 12:00:00 AM EST act eamon Lancets - eCW1 ([facility]) Lancets - Lancets - 03/02/2020 12:00:00 AM EST act eamon Lancets - eCW1 ([facility]) Blood Glucose Test - Blood Glucose Test - 03/02/2020 12:00:00 AM EST active Blood Glucose Test - eCW1 ([facility]) Glucometer UNK 03/02/2020 12:00:00 AM EST active Glucometer eCW1 ([facility]) Glucometer UNK 03/02/2020 12:00:00 AM EST active Glucometer eCW1 ([facility]) Blood Glucose Test - Blood Glucose Test - 03/02/2020 12:00:00 AM EST active Blood Glucose Test - eCW1 ([facility]) 100 unit/mL 02/26/2020 12:00:00 AM EST solution 30 INJECT 10 UNITS BEFORE MEALS THREE TIMES A DAY INJECT 10 UNITS BEFORE MEALS THREE TIMES A DAY SOLD: 02/26/2020 [facility] 10 mg 02/25/2020 12:00:00 AM EST tablet extended release 24hr 180 TAKE ONE TABLET BY MOUTH TWICE A DAY TAKE ONE TABLET BY MOUTH TWICE A DAY SOLD: 02/25/2020 [facility] Insulin Syringe 31G X 5/16" 1 ML Insulin Syringe 31G X 5/16" 1 ML 02/25/2020 12:00:00 AM EST active Insulin Syringe 31G X 5/16" 1 ML eCW1 ([facility]) Insulin Syringe 31G X 5/16" 1 ML Insulin Syringe 31G X 5/16" 1 ML 02/25/2020 12:00:00 AM EST active Insulin Syringe 31G X 5/16" 1 ML eCW1 ([facility]) Insulin Lispro 100 UNT/ML Injectable Solution [Humalog ] Humalog 100 UNIT/ML Humalog 100 UNIT/ML 02/25/2020 12:00:00 AM EST active Humalog 100 UNIT/ML eCW1 ([facility]) Insulin Lispro 100 UNT/ML Injectable Solution [Humalog ] Humalog 100 UNIT/ML Humalog 100 UNIT/ML 02/25/2020 12:00:00 AM EST active Humalog 100 UNIT/ML eCW1 ([facility]) Insulin Lispro 100 UNT/ML Injectable Solution [Humalog ] HumaLOG 100 UNIT/ML HumaLOG 100 UNIT/ML 02/25/2020 12:00:00 AM EST active HumaLOG 100 UNIT/ML eCW1 ([facility]) Insulin Lispro 100 UNT/ML Injectable Solution [Humalog ] Humalog 100 UNIT/ML Humalog 100 UNIT/ML 02/25/2020 12:00:00 AM EST active Humalog 100 UNIT/ML eCW1 ([facility]) Insulin Lispro 100 UNT/ML Injectable Solution [Humalog ] Humalog 100 UNIT/ML Humalog 100 UNIT/ML 02/25/2020 12:00:00 AM EST active Humalog 100 UNIT/ML eCW1 ([facility]) Insulin Syringe 31G X 5/16" 1 ML Insulin Syringe 31G X 5/16" 1 ML 02/25/2020 12:00:00 AM EST active Insulin Syringe 31G X 5/16" 1 ML eCW1 ([facility]) Insulin Lispro 100 UNT/ML Injectable Solution [Humalog ] Humalog 100 UNIT/ML Humalog 100 UNIT/ML 02/25/2020 12:00:00 AM EST active Humalog 100 UNIT/ML eCW1 ([facility]) Insulin Lispro 100 UNT/ML Injectable Solution [Humalog ] HumaLOG 100 UNIT/ML HumaLOG 100 UNIT/ML 02/25/2020 12:00:00 AM EST active HumaLOG 100 UNIT/ML eCW1 ([facility]) Insulin Syringe 31G X 5/16" 1 ML Insulin Syringe 31G X 5/16" 1 ML 02/25/2020 12:00:00 AM EST active e CW1 ([facility]) Insulin Syringe 31G X 5/16" 1 ML Insulin Syringe 31G X 5/16" 1 ML 02/25/2020 12:00:00 AM EST active Insulin Syringe 31G X 5/16" 1 ML eCW1 ([facility]) Insulin Syringe 31G X 5/16" 1 ML Insulin Syringe 31G X 5/16" 1 ML 02/25/2020 12:00:00 AM EST active Insulin Syringe 31G X 5/16" 1 ML eCW1 ([facility]) Insulin Syringe 31G X 5/16" 1 ML Insulin Syringe 31G X 5/16" 1 ML 02/25/2020 12:00:00 AM EST active Insulin Syringe 31G X 5/16" 1 ML eCW1 ([facility]) Insulin Syringe 31G X 5/16" 1 ML Insulin Syringe 31G X 5/16" 1 ML 02/25/2020 12:00:00 AM EST active Insulin Syringe 31G X 5/16" 1 ML eCW1 ([facility]) Insulin Syringe 31G X 5/16" 1 ML Insulin Syringe 31G X 5/16" 1 ML 02/25/2020 12:00:00 AM EST active Insulin Syringe 31G X 5/16" 1 ML eCW1 ([facility]) Insulin Syringe 31G X 5/16" 1 ML Insulin Syringe 31G X 5/16" 1 ML 02/25/2020 12:00:00 AM EST active Insulin Syringe 31G X 5/16" 1 ML eCW1 ([facility]) 100 mg 02/25/2020 12:00:00 AM EST tablet 15 TAKE 2 TABLETS BY MOUTH ON DAY 1 THEN ONE TABLET ONCE DAILY DAYS 2-14 TAKE 2 TABLETS BY MOUTH ON DAY 1 THEN ON E TABLET ONCE DAILY DAYS 2-14 SOLD: 02/25/2020 [facility] Insulin Lispro 100 UNT/ML Injectable Solution [Humalog ] HumaLOG 100 UNIT/ML HumaLOG 100 UNIT/ML 02/25/2020 12:00:00 AM EST active HumaLOG 100 UNIT/ML eCW1 ([facility]) Insulin Lispro 100 UNT/ML Injectable Solution [Humalog ] Humalog 100 UNIT/ML Humalog 100 UNIT/ML 02/25/2020 12:00:00 AM EST active Humalog 100 UNIT/ML eCW1 ([facility]) Insulin Syringe 31G X 5/16" 1 ML Insulin Syringe 31G X 5/16" 1 ML 02/25/2020 12:00:00 AM EST active Insulin Syringe 31G X 5/16" 1 ML eCW1 ([facility]) Insulin Lispro 100 UNT/ML Injectable Solution [Humalog ] Humalog 100 UNIT/ML Humalog 100 UNIT/ML 02/25/2020 12:00:00 AM EST act eamon eCW1 ([facility]) Insulin Lispro 100 UNT/ML Injectable Solution [Humalog ] Humalog 100 UNIT/ML Humalog 100 UNIT/ML 02/25/2020 12:00:00 AM EST active Humalog 100 UNIT/ML eCW1 ([facility]) 875 mg 02/12/2020 12:00:00 AM EST tablet 20 TAKE ONE TABLET BY MOUTH EVERY 12 HOURS TAKE ONE TABLET BY MOUTH EVERY 12 HOURS SOLD: 02/12/2020 [facility] 500 mg 01/28/2020 12:00:00 AM EST tablet extended release 24 hr 360 TAKE TWO TABLETS BY MOUTH TWICE A DAY TAKE TWO TABLETS BY MOUTH TWICE A DAY SOLD: 01/29/2020 [facility] 500 mg 01/28/2020 12:00:00 AM EST tablet extended release 24 hr 360 TAKE TWO TABLETS BY MOUTH TWICE A DAY TAKE TWO TABLETS BY MOUTH TWICE A DAY SOLD: 04/30/2020 [facility] 100 mg 01/13/2020 12:00:00 AM EST tablet 15 TAKE 2 TABLETS BY MOUTH ON DAY 1 THEN 1 TABLET DAILY ON DAYS 2-14 TAKE 2 TABLETS BY MOUTH ON DAY 1 THEN 1 TABLET DAILY ON DAYS 2-14 SOLD: 01/14/2020 [facility] 100 mg 12/06/2019 12:00:00 AM EDT tablet 90 TAKE ONE TABLET BY MOUTH EVERY DAY TAKE ONE TABLET BY MOUTH EVERY DAY SOLD: 04/02/2020 [facility] 100 mg 12/06/2019 12:00:00 AM EDT tablet 90 TAKE ONE TABLET BY MOUTH EVERY DAY TAKE ONE TABLET BY MOUTH EVERY DAY SOLD: 12/06/2019 [facility] 10 mg 12/04/2019 12:00:00 AM EDT tablet extended release 24hr 90 TAKE ONE TABLET BY MOUTH EVERY DAY WITH BREAKFAST TAKE ONE TABLET BY MOUTH EVERY DAY WITH BREAKFAST SOLD: 12/06/2019 [facility] 500 mg 12/02/2019 12:00:00 AM EDT capsule 30 TAKE ONE CAPSULE BY MOUTH THREE TIMES A DAY FOR 10 DAYS TAKE ONE CAPSULE BY MOUTH THREE TIMES A DAY FOR 10 DAYS SOLD: 12/02/2019 [email or web address] alogliptin 25 MG Oral Tablet [Nesina] Nesina 25 MG Nesina 25 MG 11/26/2019 12:00:00 AM EDT 1.0 {tablet} active Ne l[place] 25 MG eCW1 ([facility]) alogliptin 25 MG Oral Tablet [Nesina] Nesina 25 MG Nesina 25 MG 11/26/2019 12:00:00 AM EDT 1.0 {tablet} active [place] 25 MG eCW1 ([facility]) alogliptin 25 MG Oral Tablet [Nesina] Nesina 25 MG Nesina 25 MG 11/26/2019 12:00:00 AM EDT 1.0 {tablet} active [place] l[place] 25 MG eCW1 ([facility]) alogliptin 25 MG Oral Tablet [Nesina] Nesina 25 MG Nesina 25 MG 11/26/2019 12:00:00 AM EDT 1.0 {tablet} active Ne lyle 25 MG eCW1 ([facility]) 800 mg 11/26/2019 12:00:00 AM EDT tablet 30 TAKE ONE TABLET BY MOUTH EVERY DAY NEEDED WITH FOOD OR MILK TAKE ONE TABLET BY MOUTH EVERY DAY NE EDED WITH FOOD OR MILK SOLD: 11/29/2019 [facility] alogliptin 25 MG Oral Tablet [Nesina] Nesina 25 MG Nesina 25 MG 11/26/2019 12:00:00 AM EDT 1.0 {tablet} active Ne l[place] 25 MG eCW1 ([facility]) alogliptin 25 MG Oral Tablet [Nesina] Nesina 25 MG Nesina 25 MG 11/26/2019 12:00:00 AM EDT 1.0 {tablet} active [place] 25 MG eCW1 ([facility]) alogliptin 25 MG Oral Tablet [Nesina] Nesina 25 MG Nesina 25 MG 11/26/2019 12:00:00 AM EDT 1.0 {tablet} active [place] 25 MG eCW1 ([facility]) alogliptin 25 MG Oral Tablet [Nesina] Nesina 25 MG Nesina 25 MG 11/26/2019 12:00:00 AM EDT 1.0 {tablet} active Ne lyle 25 MG eCW1 ([facility]) 800 mg 11/26/2019 12:00:00 AM EDT tablet 30 TAKE ONE TABLET BY MOUTH EVERY DAY NEEDED WITH FOOD OR MILK TAKE ONE TABLET BY MOUTH EVERY DAY NE EDED WITH FOOD OR MILK SOLD: 02/16/2020 [facility] alogliptin 25 MG Oral Tablet [Nesina] Nesina 25 MG [facility]ina 25 MG 11/26/2019 12:00:00 AM EDT 1.0 {tablet} active Ne lyle 25 MG eCW1 ([facility]) 500 mg 06/20/2019 12:00:00 AM EDT tablet extended release 24 hr 360 TAKE TWO TABLETS BY MOUTH TWICE A DAY TAKE TWO TABLETS BY MOUTH TWICE A DAY SOLD: 10/19/2019 [email or web address] Insurance Providers Payer name Policy type / Coverage type Policy ID Covered democrat ID Covered democrat's relationship to love Policy Love Plan Information Medicaid Dental O [id number] Medicaid S [id number] S [id number] Family Health Plus Medigap Part B [id number] Self [facility] I [id number] Self [id number] Managed Care - Community Plan [facility] P [id number] S [id number] [facility] U [id number] Self [id number] [facility] [facility] Community Plan Commercial [phone] [id number] Self [phone] Medicaid S [id number] S [id number] [facility] I [id number] Self [id number] Managed Care - Community Plan [facility] P [id number] S [id number] [facility] I [id number] Self [id number] Medicaid Dental S [id number] Medicaid S [id number] S [id number] Managed Care - Community Plan [facility] P [id number] S [id number] D Managed Care [facility] P [id number] S [id number] Managed Care - Community Plan [facility] P [id number] S [id number] [employer] B UNAVAILABLE [id number] S UNAV AILABLE [employer] COMMUNITY PLAN MCDO [id number] SP [id number] [facility]) O [id number] S [id number] MEDICAID [id number] SP [id number] Sliding Fee Scale O [id number] S [id number] D Managed Care [facility] O [id number] S [id number] Managed Care BCBS O [id number] S [id number] BLUE CROSS SOFIA PLAN [id number] SP [id number] Sliding Fee Scale O [id number] S [id number] D Managed Care [facility] O [id number] S [id number] [employer] P [id number] S [id number] MEDICARE BLUE PPO 306 [id number] SP [id number] BCBS of [facility] Other [id number] Self [id number] [facility] [id number]/806 [id number] SP [id number] [employer] P [id number] S [id number] [id number] MEDICARE BLUE PPO 306 [id number] SP [id number] ANSI-Commercial [id number] ANSI-Commercial [id number] ANSI-Commercial [id number] ANSI-Commercial [id number] ANSI-Commercial [id number] ANSI-Commercial [id number] [employer] BCYO P [id number] S [id number] [id number] MEDICARE BLUE PPO 306 [id number] SP [id number] MEDICARE [id number] SP [id number] A SELF PAY ONLY UNAVAILABLE SP UNAV AILABLE [employer] BCBS B [id number] S [id number] Problems, Conditions, and Diagnoses Code Display Name Description Problem Type Effective Dates Data Source(s) 264738793 Screening for malignant neoplasm of colo n Screening for malignant neoplasm of colon Problem 10/28/2020 12:00:00 AM EDT MEDENT ([facility]) 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.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 Proble m 03/02/2020 12:00:00 AM EST eCW1 ([facility]) E11.65 [id number] Type 2 diabetes mellitus with hyperglycem ia Problem 03/02/2020 12:00:00 AM EST eCW1 ([facility]) Surgeries/Procedures Procedure Description Date Indications Data Source(s) OFFICE OUTPATIENT NEW 30 MINUTES 10/28/2020 12:00:00 A M EDT MEDENT ([facility]) Rein-Based Comp 1 Surf Post Rein-Based Comp 1 Surf Post 04/06 12:00:00 AM EDT [facility] Results No Information Social History Code Duration Value Status Description Data Source(s ) Smoking 09/03/2020 12:00:00 AM EDT Current Smoker completed Curre nt Smoker eCW1 ([facility]) Smoking 03/14/2020 12:00:00 AM EST Current Smoker completed Curre nt Smoker eCW1 ([facility]) Smoking 03/14/2020 12:00:00 AM EST Current Smoker completed Curre nt Smoker eCW1 ([facility]) Smoking 03/14/2020 12:00:00 AM EST Current Smoker completed Curre nt Smoker eCW1 ([facility]) Smoking 03/14/2020 12:00:00 AM EST Current Smoker completed Curre nt Smoker eCW1 ([facility]) Smoking 03/14/2020 12:00:00 AM EST Current Smoker completed Curre nt Smoker eCW1 ([facility]) Smoking 03/14/2020 12:00:00 AM EST Current Smoker completed Curre nt Smoker eCW1 ([facility]) Smoking 03/14/2020 12:00:00 AM EST Current Smoker completed Curre nt Smoker eCW1 ([facility]) Smoking 02/25/2020 12:00:00 AM EST Current Smoker completed Curre nt Smoker eCW1 ([facility]) Smoking 02/25/2020 12:00:00 AM EST Current Smoker completed Curre nt Smoker eCW1 ([facility]) Smoking 02/25/2020 12:00:00 AM EST Current Smoker completed Curre nt Smoker eCW1 ([facility]) Smoking 11/26/2019 12:00:00 AM EDT Current Smoker completed Curre nt Smoker eCW1 ([facility]) Smoking 11/26/2019 12:00:00 AM EDT Current Smoker completed Curre nt Smoker eCW1 ([facility]) Smoking 11/26/2019 12:00:00 AM EDT Current Smoker completed Curre nt Smoker eCW1 ([facility]) Smoking 11/26/2019 12:00:00 AM EDT Current Smoker completed Curre nt Smoker eCW1 ([facility]) Smoking 11/26/2019 12:00:00 AM EDT Current Smoker completed Curre nt Smoker eCW1 ([facility]) Smoking 11/26/2019 12:00:00 AM EDT Current Smoker completed Curre nt Smoker eCW1 ([facility]) Smoking 11/26/2019 12:00:00 AM EDT Current Smoker completed Curre nt Smoker eCW1 ([facility]) Smoking 11/26/2019 12:00:00 AM EDT Current Smoker completed Curre nt Smoker eCW1 ([facility]) Smoking 11/26/2019 12:00:00 AM EDT Current Smoker completed Curre nt Smoker eCW1 ([facility]) Vital Signs ID Date Data Source UNK Name Value Range Interpretation Code Description Data Source(s) Body height 68 [in_i] 68 [in_i] MEDENT ([facility]) 5'8" Body weight 197.00 [lb_av] 197.00 [lb_av] MEDEN T ([facility]) Systolic blood pressure 130 mm[Hg] 130 mm[Hg] M EDENT ([facility]) Diastolic blood pressure 84 mm[Hg] 84 mm[Hg] MEDENT ([facility]) Heart rate 103 /min 103 /min [facility] ([facility]) Body mass index (BMI) [Ratio] 30.0 kg/m2 30.0 k g/m2 MEDENT ([facility]) Body weight 89.359 kg 89.359 kg MEDENT ([facility]) Body temperature 97.2 [degF] 97.2 [degF] MEDENT ([facility]) Body weight 296.4 [lb_av] 296.4 [lb_av] eCW1 ([facility]) Body height 67 [in_i] 67 [in_i] eCW1 ([facility]) Body mass index (BMI) [Ratio] 46.42 kg/m2 46.42 kg/m2 eCW1 ([facility]) Heart rate 119 /min 119 /min eCW1 ([facility]) Respiratory rate 18 /min 18 /min eCW1 ([facility]) Body temperature 96.8 [degF] 96.8 [degF] eCW1 ( [facility]) Systolic blood pressure 140 mm[Hg] 140 mm[Hg] e CW1 ([facility]) Diastolic blood pressure 90 mm[Hg] 90 mm[Hg] eCW1 ([facility]) Body weight 274.8 [lb_av] 274.8 [lb_av] eCW1 ([facility]) Body height 67 [in_i] 67 [in_i] eCW1 ([facility]) Body mass index (BMI) [Ratio] 43.04 kg/m2 43.04 kg/m2 W1 ([facility]) Heart rate 112 /min 112 /min eCW1 ([facility]) Respiratory rate 18 /min 18 /min eCW1 ([facility]) Body temperature 97.9 [degF] 97.9 [degF] eCW1 ( [facility]) Systolic blood pressure 138 mm[Hg] 138 mm[Hg] e CW1 ([facility]) Diastolic blood pressure 82 mm[Hg] 82 mm[Hg] eCW1 ([facility]) Body weight 278 [lb_av] 278 [lb_av] eCW1 ([facility]) Body height 67 [in_i] 67 [in_i] eCW1 ([facility]) Body mass index (BMI) [Ratio] 43.54 kg/m2 43.54 kg/m2 eCW1 ([facility]) Heart rate 118 /min 118 /min eCW1 ([facility]) Respiratory rate 18 /min 18 /min eCW1 ([facility]) Body temperature 97.9 [degF] 97.9 [degF] eCW1 ( [facility]) Systolic blood pressure 142 mm[Hg] 142 mm[Hg] e CW1 ([facility]) Diastolic blood pressure 86 mm[Hg] 86 mm[Hg] eCW1 ([facility]) Patient Treatment Plan of Care Planned Activity Planned Date Details Description Data Source (s) Clindamycin 150 MG Oral Capsule 05/26/2020 12:00:00 AM EDT eCW1 ([facility]) Clindamycin 150 MG Oral Capsule 05/26/2020 12:00:00 AM EDT eCW1 ([facility]) Clindamycin 150 MG Oral Capsule 05/26/2020 12:00:00 AM EDT eCW1 ([facility]) Clindamycin 150 MG Oral Capsule 05/26/2020 12:00:00 AM EDT eCW1 ([facility]) Lancets - 03/02/2020 12:00:00 AM EST e CW1 ([facility]) Blood Glucose Test - 03/02/2020 12:00:00 AM EST eCW1 ([facility]) Lancets - 03/02/2020 12:00:00 AM EST e CW1 ([facility]) Glucometer 03/02/2020 12:00:00 AM EST e CW1 ([facility]) Blood Glucose Test - 03/02/2020 12:00:00 AM EST eCW1 ([facility]) Lancets - 03/02/2020 12:00:00 AM EST e CW1 ([facility]) Glucometer 03/02/2020 12:00:00 AM EST e CW1 ([facility]) Blood Glucose Test - 03/02/2020 12:00:00 AM EST eCW1 ([facility]) Glucometer 03/02/2020 12:00:00 AM EST e CW1 ([facility]) Blood Glucose Test - 03/02/2020 12:00:00 AM EST eCW1 ([facility]) Lancets - 03/02/2020 12:00:00 AM EST e CW1 ([facility]) Lancets - 03/02/2020 12:00:00 AM EST e CW1 ([facility]) Glucometer 03/02/2020 12:00:00 AM EST e CW1 ([facility]) Blood Glucose Test - 03/02/2020 12:00:00 AM EST eCW1 ([facility]) Lancets - 03/02/2020 12:00:00 AM EST e CW1 ([facility]) Glucometer 03/02/2020 12:00:00 AM EST e CW1 ([facility]) Blood Glucose Test - 03/02/2020 12:00:00 AM EST eCW1 ([facility]) Lancets - 03/02/2020 12:00:00 AM EST e CW1 ([facility]) Glucometer 03/02/2020 12:00:00 AM EST e CW1 ([facility]) Blood Glucose Test - 03/02/2020 12:00:00 AM EST eCW1 ([facility]) Lancets - 03/02/2020 12:00:00 AM EST e CW1 ([facility]) Glucometer 03/02/2020 12:00:00 AM EST e CW1 ([facility]) Blood Glucose Test - 03/02/2020 12:00:00 AM EST eCW1 ([facility]) Lancets - 03/02/2020 12:00:00 AM EST e CW1 ([facility]) Glucometer 03/02/2020 12:00:00 AM EST e CW1 ([facility]) Blood Glucose Test - 03/02/2020 12:00:00 AM EST eCW1 ([facility]) Lancets - 03/02/2020 12:00:00 AM EST e CW1 ([facility]) Glucometer 03/02/2020 12:00:00 AM EST e CW1 ([facility]) Blood Glucose Test - 03/02/2020 12:00:00 AM EST eCW1 ([facility]) Insulin Syringe 31G X 5/16" 1 ML 02/25/2020 12:00:00 AM EST eCW1 ([facility]) Insulin Lispro 100 UNT/ML Injectable Solution [Humalog ] 02/25/2020 12:00:00 AM EST eCW1 (Counts include 234 beds at the [facility]) Insulin Lispro 100 UNT/ML Injectable Solution [Humalog ] 02/25/2020 12:00:00 AM EST eCW1 (Counts include 234 beds at the [facility]) Insulin Syringe 31G X 5/16" 1 ML 02/25/2020 12:00:00 AM EST eCW1 ([facility]) Insulin Syringe 31G X 5/16" 1 ML 02/25/2020 12:00:00 AM EST eCW1 ([facility]) Insulin Lispro 100 UNT/ML Injectable Solution [Humalog ] 02/25/2020 12:00:00 AM EST eCW1 (Counts include 234 beds at the [facility]) Insulin Lispro 100 UNT/ML Injectable Solution [Humalog ] 02/25/2020 12:00:00 AM EST eCW1 (Counts include 234 beds at the [facility]) Insulin Syringe 31G X 5/16" 1 ML 02/25/2020 12:00:00 AM EST eCW1 ([facility]) Insulin Syringe 31G X 5/16" 1 ML 02/25/2020 12:00:00 AM EST eCW1 ([facility]) Insulin Lispro 100 UNT/ML Injectable Solution [Humalog ] 02/25/2020 12:00:00 AM EST eCW1 (Counts include 234 beds at the [facility]) Insulin Lispro 100 UNT/ML Injectable Solution [Humalog ] 02/25/2020 12:00:00 AM EST eCW1 (Counts include 234 beds at the [facility]) Insulin Syringe 31G X 5/16" 1 ML 02/25/2020 12:00:00 AM EST eCW1 ([facility]) Insulin Lispro 100 UNT/ML Injectable Solution [Humalog ] 02/25/2020 12:00:00 AM EST eCW1 (Counts include 234 beds at the [facility]) Insulin Syringe 31G X 5/16" 1 ML 02/25/2020 12:00:00 AM EST eCW1 ([facility]) Insulin Lispro 100 UNT/ML Injectable Solution [Humalog ] 02/25/2020 12:00:00 AM EST eCW1 (Counts include 234 beds at the [facility]) Insulin Syringe 31G X 5/16" 1 ML 02/25/2020 12:00:00 AM EST eCW1 ([facility]) Insulin Lispro 100 UNT/ML Injectable Solution [Humalog ] 02/25/2020 12:00:00 AM EST eCW1 (Counts include 234 beds at the [facility]) Insulin Syringe 31G X 5/16" 1 ML 02/25/2020 12:00:00 AM EST eCW1 ([facility]) Insulin Lispro 100 UNT/ML Injectable Solution [Humalog ] 02/25/2020 12:00:00 AM EST eCW1 (Counts include 234 beds at the [facility]) Insulin Syringe 31G X 5/16" 1 ML 02/25/2020 12:00:00 AM EST eCW1 ([facility]) Insulin Syringe 31G X 5/16" 1 ML 02/25/2020 12:00:00 AM EST eCW1 ([facility]) Insulin Lispro 100 UNT/ML Injectable Solution [Humalog ] 02/25/2020 12:00:00 AM EST eCW1 (Counts include 234 beds at the [facility]) alogliptin 25 MG Oral Tablet [Nesina] 11/26/2019 12:00:00 AM EDT eCW1 ([facility]) alogliptin 25 MG Oral Tablet [Nesina] 11/26/2019 12:00:00 AM EDT eCW1 ([facility]) alogliptin 25 MG Oral Tablet [Nesina] 11/26/2019 12:00:00 AM EDT eCW1 ([facility]) alogliptin 25 MG Oral Tablet [Nesina] 11/26/2019 12:00:00 AM EDT eCW1 ([facility]) alogliptin 25 MG Oral Tablet [Nesina] 11/26/2019 12:00:00 AM EDT eCW1 ([facility]) alogliptin 25 MG Oral Tablet [Nesina] 11/26/2019 12:00:00 AM EDT eCW1 ([facility]) alogliptin 25 MG Oral Tablet [Nesina] 11/26/2019 12:00:00 AM EDT eCW1 ([facility]) alogliptin 25 MG Oral Tablet [Nesina] 11/26/2019 12:00:00 AM EDT eCW1 ([facility]) alogliptin 25 MG Oral Tablet [Nesina] 11/26/2019 12:00:00 AM EDT eCW1 ([facility])
[2020-11-27] MEDS ORDERED: methylPREDNISolone 125MG 2ML VIAL IV ONE (16:05)
--- NOTE | 2020-11-27 16:37 | REP ---
INDICATION: SOB; COVID positive. COMPARISON: 09/01/2014 TECHNIQUE: Portable FINDINGS: The technique utilized in obtaining the radiograph has magnified the cardiac silhouette and attenuated the interstitial markings. Minimal opacities are seen in the left lung base status quo likely secondary to chronic fibrotic changes. Mild superimposed subsegmental atelectasis cannot be ruled out. No definite acute patchy opacities or pleural effusions have developed. IMPRESSION: Likely left base subsegmental atelectatic changes, however, since history given is positive COVID-19 short interval follow-up is recommended. <Electronically signed by Chele Shaikh > 11/27/20 [id number]
[2020-11-27 17:37] LABS: BASO % 0.2 % (0.0-1.0); EOS # 0.1 10^3/uL (0.0-0.5); EOS % 1.8 % (0.0-3.0); HEMATOCRIT 48.9 % (42.0-52.0); HEMOGLOBIN 15.1 g/dl (13.5-17.5); LYMPH # 1.7 10^3/uL (1.5-5.0); LYMPH % 27.5 % (24.0-44.0); MEAN CORPUSCULAR HEMOGLOBIN 26.6 pg (27.0-33.0); MEAN CORPUSCULAR HGB CONC 30.9 g/dl (32.0-36.5); MEAN CORPUSCULAR VOLUME 86.1 fl (80.0-96.0); MONO # 0.5 10^3/uL (0.0-0.8); MONO % 7.8 % (2.0-8.0); NEUTROPHILS # 3.8 10^3/uL (1.5-8.5); NEUTROPHILS % 62.2 % (36.0-66.0); PLATELET COUNT, AUTOMATED 180 10^3/uL (150-450); RED BLOOD COUNT 5.68 10^6/uL (4.30-6.10)
[2020-11-27] MEDS ORDERED: IBUP80TA (17:44)
[2020-11-27] MEDS ORDERED: INSUHUMDS (17:44)
[2020-11-27] MEDS ORDERED: LOSA100T50 (17:44)
[2020-11-27] MEDS ORDERED: ALBU8.5H (17:44)
[2020-11-27] MEDS ORDERED: GLIP10TA18 (17:44)
[2020-11-27] MEDS ORDERED: OMEP-221 (17:44)
[2020-11-27] MEDS ORDERED: METF-838 (17:44)
[2020-11-27 18:05] LABS: ALBUMIN 3.3 GM/DL (3.2-5.2); ALT/SGPT 34 U/L (12-78); BILIRUBIN,TOTAL 0.7 MG/DL (0.2-1.0); BLOOD UREA NITROGEN 6 MG/DL (7-18); CALCIUM LEVEL 8.2 MG/DL (8.8-10.2); CARBON DIOXIDE LEVEL 33 MEQ/L (21-32); CHLORIDE LEVEL 102 MEQ/L (98-107); CREATININE FOR GFR 0.88 MG/DL (0.70-1.30); GLOMERULAR FILTRATION RATE > 60.0 (>49); GLUCOSE, FASTING 121 MG/DL (70-100); SODIUM LEVEL 139 MEQ/L (136-145); TOTAL PROTEIN 6.6 GM/DL (6.4-8.2)
--- OUTSIDE RECORDS SUMMARY | 2020-11-27 18:21 | CCD ---
Author Author [facility] Organization [facility] Address Unknown Phone Unavailable Support Name Relationship Address Phone Clair Emerson Next Of Kin Unknown Unavailable TRISHA RUBI Next Of Kin [address] [place] [address] DISABLED Next Of Kin Unknown Unavailable Gennaro Levi MD Next Of Kin [address] [place] [address] Dilbienvenido DDS, Pilar Next Of Kin [address] [place], [place] [id number] Dille DDS, Pilar Next Of Kin [address] [place] [phone] Franck ANP-BC, Deisy Next Of Kin [address] [place] [id number] "" Next Of Kin [id number] [facility] [address] [place] [address] Sam RPA-C, Romi Next Of Kin [address] [place] [address] Florence PET NUTRITION SPECIALIST, Natalie Next Of Kin [address] [place] [address] UE Next Of Kin Unknown Unavailable CLAIR EMERSON Next Of Kin [address] [facility] [place] [address] Trisha rubi ECON [address] [place] [address] Unavailable Care Team Providers Care Nurses Supervisor Name Role Phone Cesario Woods MD Unavailable [...] Unavailable Peggy, S Jorge MD Unavailable Unavailable Pegyg, S Jorge MD Unavailable Unavailable Peggy, S [...] is protected by Article 27-F of the [facility] Public Health law. If you continue you may have access to information: Regarding HIV / AIDS; Provided by facilities licensed or operated by the [facility] Office of Mental Health; or Provided by the [facility] Office for People With Developmental Disabilities. If such information is present, then the following [facility] mandated warning applies: This information has been [...] law may result in a fine or correction sentence or both. A general authorization for the release of medical or other information is NOT sufficient authorization for further disc losure. Advance Directives Directive Description Extrusion Manager Safety Clothing And Equipment Developer Status Observation Descr iption Data Source(s) Ebola Screening Performed completed Ebol a Screening Performed VENETIA ([facility]) Note: Within the last month, have you tr aveled outside of the [place]? -NO Allergies and Adverse Reactions Type Description Substance Reaction Status Data Source(s ) Allergy to substance No Known Allergies No known allergies (situation ) OSKAR ([facility]) Family History Family Member Name Family Member Gender Family Member Status Date o f Status Description Data Source(s) Unknown Female Problem MEDENT ([facility]) Unknown Female Problem MEDENT ([facility]) Unknown Female Problem MEDENT ([facility]) Unknown Female Problem MEDENT ([facility]) Unknown Female Problem MEDENT ([facility]) Unknown Female Problem MEDENT ([facility]) Encounters Encounter Providers Location Date Indications Data Source(s ) Outpatient Attender: Jorge Woods MD Main Office 10/28/2020 10:00:00 AM EDT MEDENT ([facility]) Outpatient [address] [facility] [address] 08/25/2020 12:00:00 AM EDT eCW1 (formerly [facility]) Unknown [address] [facility] [place] [address] 08/17/2020 12:00:00 AM EDT eCW1 ([facility] [place] [address] [facility] [address] 08/16/2020 12:00:00 AM EDT eCW1 ([facility] [place] [address] [facility] [address] 06/03/2020 12:00:00 AM EDT eCW1 ([facility]) [place] [address] [facility] [address] 05/26/2020 12:00:00 AM EDT eCW1 ([facility]) [place] [address] [facility] [address] 05/10/2020 12:00:00 AM EDT eCW1 ([facility]) <td ID="encounterTypeDescriptionID0">D D ental Office Visit - 30</td><td>Ely Valle DDS</td><td>[facility]</td><td>04/27/2020</td><td>3:29PM</td><td>3:55PM</td><td></td>Unknown Attender: Ely Valle DDS [facility] 04/27/2020 03:29:00 PM EDT - 04/27/2020 03:55:00 PM EDT VENETIA ([facility]) Unknown [address] [facility] [address] 04/23/2020 12:00:00 AM EDT eCW1 ([facility]) Unknown [address] [facility] [address] 03/02/2020 12:00:00 AM EST eCW1 ([facility] [place] [address] [facility] [address] 03/02/2020 12:00:00 AM EST eCW1 ([facility]) [place] [address] [facility] [address] 02/25/2020 12:00:00 AM EST eCW1 ([facility]) [place] [address] [facility] [address] 02/25/2020 12:00:00 AM EST eCW1 ([facility]) Unknown [address] [facility] [address] 02/23/2020 12:00:00 AM EST eCW1 ([facility]) Unknown [address] [facility] [address] 01/27/2020 12:00:00 AM EST eCW1 ([facility]) Unknown [address] [facility] [address] 01/13/2020 12:00:00 AM EST eCW1 ([facility]) Unknown [address] [facility] [address] 12/03/2019 12:00:00 AM EDT eCW1 ([facility]) Outpatient [address] [facility] [address] 11/26/2019 12:00:00 AM EDT eCW1 ([facility]) Unknown [address] [facility] [address] 11/25/2019 12:00:00 AM EDT eCW1 ([facility]) Unknown [address] [facility] [address] 11/06/2019 12:00:00 AM EDT eCW1 ([facility]) Unknown [address] [facility] [address] 10/28/2019 12:00:00 AM EDT eCW1 ([facility]) Unknown [address] [facility] [address] 10/28/2019 12:00:00 AM EDT eCW1 ([facility]) Unknown [address] [facility] [address] 10/28/2019 12:00:00 AM EDT eCW1 ([facility]) Immunizations Vaccine Date Status Description Data Source(s) COVID-19 VACCINE Moderna 05/25/2020 12:00:00 AM EDT completed [facility] Vaccine Series Complete: YESThis Data wa s Submitted to [facility] Via [facility]. COVID-19 VACC,MRNA(MODERNA)/PF 05/25/2020 12:00:00 AM EDT completed [facility] COVID-19 VACCINE Moderna 04/23/2020 12:00:00 AM EDT completed [facility] Vaccine Series Complete: NOThis Data was Submitted to [facility] Via [facility]. COVID-19 VACCINE, MRNA-1273, LNP-S (MODERNA)/PF 04/23/2020 1 [...] 10/28/2020 12:00:00 AM EDT ORAL active MEDENT (ACTV8) Suprep Bowel Prep Kit Suprep Bowel Prep Kit 10/28/2020 12:00:00 AM EDT active MEDENT ([facility]) 1 mL 31 gauge x 5/16 09/04/2020 [...] 12:00:00 AM EDT 2.0 {capsules} active eCW1 ([facility]) Clindamycin 150 MG Oral Capsule Clindamycin HCl 150 MG Clind amycin HCl 150 MG 05/26/2020 12:00:00 AM EDT 2.0 {capsules} active Clindamycin HCl 150 MG eCW1 ([facility]) 150 mg 05/26/2020 12:00:00 AM EDT capsule 60 TAKE TWO CAPSULES BY MOUTH THREE TIMES A DAY FOR 10 DAYS TAKE TWO CAPSULES BY MOUTH THREE TIMES A DAY FOR 10 DAYS SOLD: 05/26/2020 [facility] Clindamycin 150 MG Oral Capsule Clindamycin HCl 150 MG Clind amycin HCl 150 MG 05/26/2020 12:00:00 AM EDT 2.0 {capsules} active Clindamycin HCl 150 MG eCW1 ([facility]) Clindamycin 150 MG Oral Capsule Clindamycin HCl 150 MG Clind amycin HCl 150 MG 05/26/2020 12:00:00 AM EDT 2.0 {capsules} active Clindamycin HCl 150 MG eCW1 ([facility]) Glucometer UNK 03/02/2020 12:00:00 AM EST active Glucometer eCW1 ([facility]) Lancets - Lancets - 03/02/2020 12:00:00 AM EST act eamon Lancets - eCW1 ([facility]) Glucometer UNK 03/02/2020 12:00:00 AM EST active Glucometer eCW1 ([facility]) Blood Glucose Test - Blood Glucose Test - 03/02/2020 12:00:00 AM EST active Blood Glucose Test - eCW1 ([facility]) Glucometer UNK 03/02/2020 12:00:00 AM EST active Glucometer eCW1 ([facility]) Lancets - Lancets - 03/02/2020 12:00:00 AM EST act eamon eCW1 ([facility]) Lancets - Lancets - 03/02/2020 12:00:00 AM EST act eamon Lancets - eCW1 ([facility]) Blood Glucose Test - Blood Glucose Test - 03/02/2020 12:00:00 AM EST active Blood Glucose Test - eCW1 ([facility]) Blood Glucose Test - Blood Glucose Test - 03/02/2020 12:00:00 AM EST active Blood Glucose Test - eCW1 ([facility]) Blood Glucose Test - Blood Glucose Test - 03/02/2020 12:00:00 AM EST active Blood Glucose Test - eCW1 ([facility]) Glucometer UNK 03/02/2020 12:00:00 AM EST active Glucometer eCW1 ([facility]) Glucometer UNK 03/02/2020 12:00:00 AM EST active Glucometer eCW1 ([facility]) Glucometer UNK 03/02/2020 12:00:00 AM EST active eCW1 ([facility]) Blood Glucose Test - Blood Glucose Test - 03/02/2020 12:00:00 AM EST active eCW1 ([facility]) Blood Glucose Test - Blood Glucose Test - 03/02/2020 12:00:00 AM EST active Blood Glucose Test - eCW1 ([facility]) Lancets - Lancets - 03/02/2020 12:00:00 AM EST act eamon Lancets - eCW1 ([facility]) Lancets - Lancets - 03/02/2020 12:00:00 AM EST act eamon Lancets - eCW1 ([facility]) Lancets - Lancets - 03/02/2020 12:00:00 AM EST act eamon Lancets - eCW1 ([facility]) Glucometer UNK 03/02/2020 12:00:00 AM EST active Glucometer eCW1 ([facility]) Blood Glucose Test - Blood Glucose Test - 03/02/2020 12:00:00 AM EST active Blood Glucose Test - eCW1 ([facility]) Lancets - Lancets - 03/02/2020 12:00:00 AM EST act eamon Lancets - eCW1 ([facility]) Blood Glucose Test - Blood Glucose Test - 03/02/2020 12:00:00 AM EST active Blood Glucose Test - eCW1 ([facility]) Lancets - Lancets - 03/02/2020 12:00:00 AM EST act eamon Lancets - eCW1 ([facility]) Glucometer UNK 03/02/2020 12:00:00 AM EST active Glucometer eCW1 ([facility]) Lancets - Lancets - 03/02/2020 12:00:00 AM EST act eamon Lancets - eCW1 ([facility]) Lancets - Lancets - 03/02/2020 12:00:00 AM EST act eamon Lancets - eCW1 ([facility]) Blood Glucose Test - Blood Glucose Test - 03/02/2020 12:00:00 AM EST active Blood Glucose Test - eCW1 ([facility]) Glucometer UNK 03/02/2020 12:00:00 AM EST active Glucometer eCW1 ([facility]) Glucometer UNK 03/02/2020 12:00:00 AM EST active Glucometer eCW1 ([facility]) Blood Glucose Test - Blood Glucose Test - 03/02/2020 12:00:00 AM EST active Blood Glucose Test - eCW1 ([facility]) 100 unit/mL 02/26/2020 12:00:00 AM EST solution [...] Syringe 31G X 5/16" 1 ML eCW1 ([facility]) Insulin Syringe 31G X 5/16" 1 ML Insulin Syringe 31G X 5/16" 1 ML 02/25/2020 12:00:00 AM EST active Insulin Syringe 31G X 5/16" 1 ML eCW1 ([facility]) Insulin Lispro 100 UNT/ML Injectable Solution [Humalog ] Humalog 100 UNIT/ML Humalog 100 UNIT/ML 02/25/2020 12:00:00 AM EST active Humalog 100 UNIT/ML eCW1 ([facility]) Insulin Lispro 100 UNT/ML Injectable Solution [Humalog ] Humalog 100 UNIT/ML Humalog 100 UNIT/ML 02/25/2020 12:00:00 AM EST active Humalog 100 UNIT/ML eCW1 ([facility]) Insulin Lispro 100 UNT/ML Injectable Solution [Humalog ] HumaLOG 100 UNIT/ML HumaLOG 100 UNIT/ML 02/25/2020 12:00:00 AM EST active HumaLOG 100 UNIT/ML eCW1 ([facility]) Insulin Lispro 100 UNT/ML Injectable Solution [Humalog ] Humalog 100 UNIT/ML Humalog 100 UNIT/ML 02/25/2020 12:00:00 AM EST active Humalog 100 UNIT/ML eCW1 ([facility]) Insulin Lispro 100 UNT/ML Injectable Solution [Humalog ] Humalog 100 UNIT/ML Humalog 100 UNIT/ML 02/25/2020 12:00:00 AM EST active Humalog 100 UNIT/ML eCW1 ([facility]) Insulin Syringe 31G X 5/16" 1 ML Insulin Syringe 31G X 5/16" 1 ML 02/25/2020 12:00:00 AM EST active Insulin Syringe 31G X 5/16" 1 ML eCW1 ([facility]) Insulin Lispro 100 UNT/ML Injectable Solution [Humalog ] Humalog 100 UNIT/ML Humalog 100 UNIT/ML 02/25/2020 12:00:00 AM EST active Humalog 100 UNIT/ML eCW1 ([facility]) Insulin Lispro 100 UNT/ML Injectable Solution [Humalog ] HumaLOG 100 UNIT/ML HumaLOG 100 UNIT/ML 02/25/2020 12:00:00 AM EST active HumaLOG 100 UNIT/ML eCW1 ([facility]) Insulin Syringe 31G X 5/16" 1 ML Insulin Syringe 31G X 5/16" 1 ML 02/25/2020 12:00:00 AM EST active e CW1 ([facility]) Insulin Syringe 31G X 5/16" 1 ML Insulin Syringe 31G X 5/16" 1 ML 02/25/2020 12:00:00 AM EST active Insulin Syringe 31G X 5/16" 1 ML eCW1 ([facility]) Insulin Syringe 31G X 5/16" 1 ML Insulin Syringe 31G X 5/16" 1 ML 02/25/2020 12:00:00 AM EST active Insulin Syringe 31G X 5/16" 1 ML eCW1 ([facility]) Insulin Syringe 31G X 5/16" 1 ML Insulin Syringe 31G X 5/16" 1 ML 02/25/2020 12:00:00 AM EST active Insulin Syringe 31G X 5/16" 1 ML eCW1 ([facility]) Insulin Syringe 31G X 5/16" 1 ML Insulin Syringe 31G X 5/16" 1 ML 02/25/2020 12:00:00 AM EST active Insulin Syringe 31G X 5/16" 1 ML eCW1 ([facility]) Insulin Syringe 31G X 5/16" 1 ML Insulin Syringe 31G X 5/16" 1 ML 02/25/2020 12:00:00 AM EST active Insulin Syringe 31G X 5/16" 1 ML eCW1 ([facility]) Insulin Syringe 31G X 5/16" 1 ML Insulin Syringe 31G X 5/16" 1 ML 02/25/2020 12:00:00 AM EST active Insulin Syringe 31G X 5/16" 1 ML eCW1 ([facility]) 100 mg 02/25/2020 12:00:00 AM EST tablet [...] AM EST active HumaLOG 100 UNIT/ML eCW1 ([facility]) Insulin Lispro 100 UNT/ML Injectable Solution [Humalog ] Humalog 100 UNIT/ML Humalog 100 UNIT/ML 02/25/2020 12:00:00 AM EST active Humalog 100 UNIT/ML eCW1 ([facility]) Insulin Syringe 31G X 5/16" 1 ML Insulin Syringe 31G X 5/16" 1 ML 02/25/2020 12:00:00 AM EST active Insulin Syringe 31G X 5/16" 1 ML eCW1 ([facility]) Insulin Lispro 100 UNT/ML Injectable Solution [Humalog ] Humalog 100 UNIT/ML Humalog 100 UNIT/ML 02/25/2020 12:00:00 AM EST act eamon eCW1 ([facility]) Insulin Lispro 100 UNT/ML Injectable Solution [Humalog ] Humalog 100 UNIT/ML Humalog 100 UNIT/ML 02/25/2020 12:00:00 AM EST active Humalog 100 UNIT/ML eCW1 ([facility]) 875 mg 02/12/2020 12:00:00 AM EST tablet [...] A DAY FOR 10 DAYS SOLD: 12/02/2019 [facility] alogliptin 25 MG Oral Tablet [Nesina] Nesina 25 MG Nesina 25 MG 11/26/2019 12:00:00 AM EDT 1.0 {tablet} active Ne lyle 25 MG eCW1 ([facility]) alogliptin 25 MG Oral Tablet [Nesina] Nesina 25 MG Nesina 25 MG 11/26/2019 12:00:00 AM EDT 1.0 {tablet} active Ne lyle 25 MG eCW1 ([facility]) alogliptin 25 MG Oral Tablet [Nesina] Nesina 25 MG Nesina 25 MG 11/26/2019 12:00:00 AM EDT 1.0 {tablet} active Ne lyle 25 MG eCW1 ([facility]) alogliptin 25 MG Oral Tablet [Nesina] Nesina 25 MG Nesina 25 MG 11/26/2019 12:00:00 AM EDT 1.0 {tablet} active Ne lyle 25 MG eCW1 ([facility]) 800 mg 11/26/2019 12:00:00 AM EDT tablet 30 TAKE ONE TABLET BY MOUTH EVERY DAY NEEDED WITH FOOD OR MILK TAKE ONE TABLET BY MOUTH EVERY DAY NE EDED WITH FOOD OR MILK SOLD: 11/29/2019 [facility] alogliptin 25 MG Oral Tablet [Nesina] Nesina 25 MG Nesina 25 MG 11/26/2019 12:00:00 AM EDT 1.0 {tablet} active Ne lyle 25 MG eCW1 ([facility]) alogliptin 25 MG Oral Tablet [Nesina] Nesina 25 MG Nesina 25 MG 11/26/2019 12:00:00 AM EDT 1.0 {tablet} active Ne lyle 25 MG eCW1 ([facility]) alogliptin 25 MG Oral Tablet [Nesina] Nesina 25 MG Nesina 25 MG 11/26/2019 12:00:00 AM EDT 1.0 {tablet} active Ne lyle 25 MG eCW1 ([facility]) alogliptin 25 MG Oral Tablet [Nesina] Nesina 25 MG Nesina 25 MG 11/26/2019 12:00:00 AM EDT 1.0 {tablet} active Ne lyle 25 MG eCW1 ([facility]) 800 mg 11/26/2019 12:00:00 AM EDT tablet 30 TAKE ONE TABLET BY MOUTH EVERY DAY NEEDED WITH FOOD OR MILK TAKE ONE TABLET BY MOUTH EVERY DAY NE EDED WITH FOOD OR MILK SOLD: 02/16/2020 [facility] alogliptin 25 MG Oral Tablet [Nesina] Nesina 25 MG Nesina 25 MG 11/26/2019 12:00:00 AM EDT 1.0 {tablet} active Ne lyle 25 MG eCW1 ([facility]) 500 mg 06/20/2019 12:00:00 AM EDT tablet extended release 24 hr 360 TAKE TWO TABLETS BY MOUTH TWICE A DAY TAKE TWO TABLETS BY MOUTH TWICE A DAY SOLD: 10/19/2019 [facility] Insurance Providers Payer name Policy type / Coverage type Policy ID Covered libertarian ID Covered libertarian's relationship to love Policy Love Plan Information Medicaid Dental O [id number] S [id number] Medicaid S [id number] S [id number] Family Health Plus Medigap Part B [id number] Self [facility] I [id number] Self [id number] Managed Care - Community Plan [facility] P [id number] S [id number] [facility] CARE U [id number] Self [id number] [facility] Community Plan Commercial [phone] [id number] Self [phone] Medicaid S [id number] S [id number] [facility] I [id number] Self [id number] Managed Care - Community Plan [facility] P [id number] S [id number] [facility] I [id number] Self [id number] Medicaid Dental S [id number] Medicaid S [id number] S [id number] Managed Care - Community Plan [facility] P [id number] S [id number] D Managed Care [facility] P [id number] S [id number] Managed Care - Community Plan [facility] P [id number] S [id number] [employer] BCBS B UNAVAILABLE [id number] S UNAV AILABLE UN[employer] COMMUNITY PLAN MCDO [id number] SP [id number] [facility](MCAID) O [id number] S [id number] MEDICAID [id number] SP [id number] Sliding Fee Scale O [id number] S [id number] D Managed Care [facility] O [id number] S [id number] Managed Care BCBS O [id number] S [id number] BLUE CROSS SOFIA PLAN [id number] SP [id number] Sliding Fee Scale O [id number] S [id number] D Managed Care [facility] O [id number] S [id number] [employer] P [id number] S [id number] MEDICARE BLUE PPO 306 [id number] SP [id number] BCBS of [facility] Other [id number] Self [id number] BCBS OF [facility] WITH [facility] [id number] SP [id number] [employer] BCBS P [id number] S [id number] MEDICARE BLUE PPO 306 [id number] SP [id number] ANSI-Commercial [id number] ANSI-Commercial [id number] ANSI-Commercial [id number] ANSI-Commercial [id number] ANSI-Commercial [id number] ANSI-Commercial [id number] [employer] BCYO P [id number] S VYM [id number] MEDICARE BLUE PPO 306 [id number] SP [id number] MEDICARE [id number] SP [id number] A SELF PAY ONLY UNAVAILABLE SP UNAV AILABLE [employer] BCBS B [id number] S [id number] Problems, Conditions, and Diagnoses Code Display Name Description Problem Type Effective Dates Data Source(s) 852420992 Screening for malignant neoplasm of colo n Screening for malignant neoplasm of colon Problem 10/28/2020 12:00:00 AM EDT MEDENT ([facility]) Z79.4 [id number] 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 Proble m 03/02/2020 12:00:00 AM EST eCW1 ([facility]) E11.65 [id number] Type 2 diabetes mellitus with hyperglycem ia Problem 03/02/2020 12:00:00 AM EST eCW1 ([facility]) Surgeries/Procedures Procedure Description Date Indications Data Source(s) OFFICE OUTPATIENT NEW 30 MINUTES 10/28/2020 12:00:00 A M EDT MEDENT ([facility]) Rein-Based Comp 1 Surf Post Rein-Based Comp 1 Surf Post 04/06 12:00:00 AM EDT [facility] Results No Information Social History Code Duration Value Status Description Data Source(s ) Smoking 09/03/2020 12:00:00 AM EDT Current Smoker completed Curre nt Smoker eCW1 ([facility]) Smoking 03/14/2020 12:00:00 AM EST Current Smoker completed Curre nt Smoker eCW1 ([facility]) Smoking 03/14/2020 12:00:00 AM EST Current Smoker completed Curre nt Smoker eCW1 ([facility]) Smoking 03/14/2020 12:00:00 AM EST Current Smoker completed Curre nt Smoker eCW1 ([facility]) Smoking 03/14/2020 12:00:00 AM EST Current Smoker completed Curre nt Smoker eCW1 ([facility]) Smoking 03/14/2020 12:00:00 AM EST Current Smoker completed Curre nt Smoker eCW1 ([facility]) Smoking 03/14/2020 12:00:00 AM EST Current Smoker completed Curre nt Smoker eCW1 ([facility]) Smoking 03/14/2020 12:00:00 AM EST Current Smoker completed Curre nt Smoker eCW1 ([facility]) Smoking 02/25/2020 12:00:00 AM EST Current Smoker completed Curre nt Smoker eCW1 (Formerly [facility], [facility]) Smoking 02/25/2020 12:00:00 AM EST Current Smoker completed Curre nt Smoker eCW1 (Formerly [facility], [facility]) Smoking 02/25/2020 12:00:00 AM EST Current Smoker completed Curre nt Smoker eCW1 (Formerly [facility], [facility]) Smoking 11/26/2019 12:00:00 AM EDT Current Smoker completed Curre nt Smoker eCW1 (Formerly [facility], [facility]) Smoking 11/26/2019 12:00:00 AM EDT Current Smoker completed Curre nt Smoker eCW1 (Formerly [facility], [facility]) Smoking 11/26/2019 12:00:00 AM EDT Current Smoker completed Curre nt Smoker eCW1 (Formerly [facility], [facility]) Smoking 11/26/2019 12:00:00 AM EDT Current Smoker completed Curre nt Smoker eCW1 (Formerly [facility], [facility]) Smoking 11/26/2019 12:00:00 AM EDT Current Smoker completed Curre nt Smoker eCW1 (Formerly [facility]) Smoking 11/26/2019 12:00:00 AM EDT Current Smoker completed Curre nt Smoker eCW1 (Formerly [facility], [facility]) Smoking 11/26/2019 12:00:00 AM EDT Current Smoker completed Curre nt Smoker eCW1 (Formerly [facility], [facility]) Smoking 11/26/2019 12:00:00 AM EDT Current Smoker completed Curre nt Smoker eCW1 (Formerly [facility], [facility]) Smoking 11/26/2019 12:00:00 AM EDT Current Smoker completed Curre nt Smoker eCW1 (Formerly [facility], [facility]) Vital Signs ID Date Data Source UNK [...] Body weight 296.4 [lb_av] 296.4 [lb_av] eCW1 ([facility]) Body height 67 [in_i] 67 [in_i] eCW1 ([facility]) Body mass index (BMI) [Ratio] 46.42 kg/m2 46.42 kg/m2 eCW1 (Formerly [facility], [facility]) Heart rate 119 /min 119 /min eCW1 (On license of [facility]) Respiratory rate 18 /min 18 /min eCW1 ([facility]) Body temperature 96.8 [degF] 96.8 [degF] eCW1 ( Formerly [facility]) Systolic blood pressure 140 mm[Hg] 140 mm[Hg] e CW1 (Formerly [facility], [facility]) Diastolic blood pressure 90 mm[Hg] 90 mm[Hg] eCW1 (Formerly [facility]) Body weight 274.8 [lb_av] 274.8 [lb_av] eCW1 ([facility]) Body height 67 [in_i] 67 [in_i] eCW1 ([facility]) Body mass index (BMI) [Ratio] 43.04 kg/m2 43.04 kg/m2 W1 (Formerly [facility], [facility]) Heart rate 112 /min 112 /min eCW1 (On license of [facility]) Respiratory rate 18 /min 18 /min eCW1 ([facility]) Body temperature 97.9 [degF] 97.9 [degF] eCW1 ( Formerly [facility]) Systolic blood pressure 138 mm[Hg] 138 mm[Hg] e CW1 (Formerly [facility]) Diastolic blood pressure 82 mm[Hg] 82 mm[Hg] eCW1 (Formerly [facility]) Body weight 278 [lb_av] 278 [lb_av] eCW1 ([facility]) Body height 67 [in_i] 67 [in_i] eCW1 ([facility]) Body mass index (BMI) [Ratio] 43.54 kg/m2 43.54 kg/m2 eCW1 (Formerly [facility]) Heart rate 118 /min 118 /min eCW1 (On license of [facility]) Respiratory rate 18 /min 18 /min eCW1 ([facility]) Body temperature 97.9 [degF] 97.9 [degF] eCW1 ( Formerly [facility]) Systolic blood pressure 142 mm[Hg] 142 mm[Hg] e CW1 (Formerly [facility]) Diastolic blood pressure 86 mm[Hg] 86 mm[Hg] eCW1 (Formerly [facility], [facility]) Patient Treatment Plan of Care Planned Activity Planned Date Details Description Data Source (s) Clindamycin 150 MG Oral Capsule 05/26/2020 12:00:00 AM EDT eCW1 (Formerly [facility]) Clindamycin 150 MG Oral Capsule 05/26/2020 12:00:00 AM EDT eCW1 (Formerly [facility]) Clindamycin 150 MG Oral Capsule 05/26/2020 12:00:00 AM EDT eCW1 (Formerly [facility]) Clindamycin 150 MG Oral Capsule 05/26/2020 12:00:00 AM EDT eCW1 (Formerly [facility]) Lancets - 03/02/2020 12:00:00 AM EST e CW1 (Formerly [facility]) Blood Glucose Test - 03/02/2020 12:00:00 AM EST eCW1 (Formerly [facility]) Lancets - 03/02/2020 12:00:00 AM EST e CW1 (Formerly [facility]) Glucometer 03/02/2020 12:00:00 AM EST e CW1 (Formerly [facility]) Blood Glucose Test - 03/02/2020 12:00:00 AM EST eCW1 (Formerly [facility]) Lancets - 03/02/2020 12:00:00 AM EST e CW1 (Formerly [facility]) Glucometer 03/02/2020 12:00:00 AM EST e CW1 (Formerly [facility]) Blood Glucose Test - 03/02/2020 12:00:00 AM EST eCW1 (Formerly [facility]) Glucometer 03/02/2020 12:00:00 AM EST e CW1 (Formerly [facility]) Blood Glucose Test - 03/02/2020 12:00:00 AM EST eCW1 (Formerly [facility]) Lancets - 03/02/2020 12:00:00 AM EST e CW1 (Formerly [facility]) Lancets - 03/02/2020 12:00:00 AM EST e CW1 (Formerly [facility]) Glucometer 03/02/2020 12:00:00 AM EST e CW1 (Formerly [facility]) Blood Glucose Test - 03/02/2020 12:00:00 AM EST eCW1 (Formerly [facility]) Lancets - 03/02/2020 12:00:00 AM EST e CW1 (Formerly [facility]) Glucometer 03/02/2020 12:00:00 AM EST e CW1 (Formerly [facility]) Blood Glucose Test - 03/02/2020 12:00:00 AM EST eCW1 (Formerly [facility]) Lancets - 03/02/2020 12:00:00 AM EST e CW1 (Formerly [facility]) Glucometer 03/02/2020 12:00:00 AM EST e CW1 (Formerly [facility]) Blood Glucose Test - 03/02/2020 12:00:00 AM EST eCW1 (Formerly [facility]) Lancets - 03/02/2020 12:00:00 AM EST e CW1 (Formerly [facility]) Glucometer 03/02/2020 12:00:00 AM EST e CW1 (Formerly [facility]) Blood Glucose Test - 03/02/2020 12:00:00 AM EST eCW1 (Formerly [facility]) Lancets - 03/02/2020 12:00:00 AM EST e CW1 (Formerly [facility]) Glucometer 03/02/2020 12:00:00 AM EST e CW1 (Formerly [facility]) Blood Glucose Test - 03/02/2020 12:00:00 AM EST eCW1 (Formerly [facility]) Lancets - 03/02/2020 12:00:00 AM EST e CW1 (Formerly [facility]) Glucometer 03/02/2020 12:00:00 AM EST e CW1 (Formerly [facility]) Blood Glucose Test - 03/02/2020 12:00:00 AM EST eCW1 (Formerly [facility]) Insulin Syringe 31G X 5/16" 1 ML 02/25/2020 12:00:00 AM EST eCW1 (Formerly [facility]) Insulin Lispro 100 UNT/ML Injectable Solution [Humalog ] 02/25/2020 12:00:00 AM EST eCW1 ([facility]) Insulin Lispro 100 UNT/ML Injectable Solution [Humalog ] 02/25/2020 12:00:00 AM EST eCW1 ([facility]) Insulin Syringe 31G X 5/16" 1 ML 02/25/2020 12:00:00 AM EST eCW1 (Formerly [facility]) Insulin Syringe 31G X 5/16" 1 ML 02/25/2020 12:00:00 AM EST eCW1 (Formerly [facility]) Insulin Lispro 100 UNT/ML Injectable Solution [Humalog ] 02/25/2020 12:00:00 AM EST eCW1 ([facility]) Insulin Lispro 100 UNT/ML Injectable Solution [Humalog ] 02/25/2020 12:00:00 AM EST eCW1 ([facility]) Insulin Syringe 31G X 5/16" 1 ML 02/25/2020 12:00:00 AM EST eCW1 (Formerly [facility]) Insulin Syringe 31G X 5/16" 1 ML 02/25/2020 12:00:00 AM EST eCW1 (Formerly [facility]) Insulin Lispro 100 UNT/ML Injectable Solution [Humalog ] 02/25/2020 12:00:00 AM EST eCW1 ([facility]) Insulin Lispro 100 UNT/ML Injectable Solution [Humalog ] 02/25/2020 12:00:00 AM EST eCW1 ([facility]) Insulin Syringe 31G X 5/16" 1 ML 02/25/2020 12:00:00 AM EST eCW1 (Formerly [facility]) Insulin Lispro 100 UNT/ML Injectable Solution [Humalog ] 02/25/2020 12:00:00 AM EST eCW1 ([facility]) Insulin Syringe 31G X 5/16" 1 ML 02/25/2020 12:00:00 AM EST eCW1 (Formerly [facility]) Insulin Lispro 100 UNT/ML Injectable Solution [Humalog ] 02/25/2020 12:00:00 AM EST eCW1 ([facility]) Insulin Syringe 31G X 5/16" 1 ML 02/25/2020 12:00:00 AM EST eCW1 (Formerly [facility]) Insulin Lispro 100 UNT/ML Injectable Solution [Humalog ] 02/25/2020 12:00:00 AM EST eCW1 ([facility]) Insulin Syringe 31G X 5/16" 1 ML 02/25/2020 12:00:00 AM EST eCW1 (Formerly [facility]) Insulin Lispro 100 UNT/ML Injectable Solution [Humalog ] 02/25/2020 12:00:00 AM EST eCW1 ([facility]) Insulin Syringe 31G X 5/16" 1 ML 02/25/2020 12:00:00 AM EST eCW1 (Formerly [facility]) Insulin Syringe 31G X 5/16" 1 ML 02/25/2020 12:00:00 AM EST eCW1 (Formerly [facility]) Insulin Lispro 100 UNT/ML Injectable Solution [Humalog ] 02/25/2020 12:00:00 AM EST eCW1 ([facility]) alogliptin 25 MG Oral Tablet [Nesina] 11/26/2019 12:00:00 AM EDT eCW1 (Formerly [facility]) alogliptin 25 MG Oral Tablet [Nesina] 11/26/2019 12:00:00 AM EDT eCW1 (Formerly [facility]) alogliptin 25 MG Oral Tablet [Nesina] 11/26/2019 12:00:00 AM EDT eCW1 (Formerly [facility]) alogliptin 25 MG Oral Tablet [Nesina] 11/26/2019 12:00:00 AM EDT eCW1 (Formerly [facility]) alogliptin 25 MG Oral Tablet [Nesina] 11/26/2019 12:00:00 AM EDT eCW1 (Formerly [facility]) alogliptin 25 MG Oral Tablet [Nesina] 11/26/2019 12:00:00 AM EDT eCW1 (Formerly [facility]) alogliptin 25 MG Oral Tablet [Nesina] 11/26/2019 12:00:00 AM EDT eCW1 (Formerly [facility]) alogliptin 25 MG Oral Tablet [Nesina] 11/26/2019 12:00:00 AM EDT eCW1 (Formerly [facility]) alogliptin 25 MG Oral Tablet [Nesina] 11/26/2019 12:00:00 AM EDT eCW1 (Formerly [facility])
[2020-11-27] MEDS ORDERED: PRED10TA2 PO (18:41)
[2020-11-27] MEDS ORDERED: oxygen (18:44)
[2020-11-27 20:45] VITALS: BP 157/75
== END 2020-11-27 21:15 | disposition home or self-care (01) ==
LOC: M ED 14:56
DX: U07.1 COVID-19 (principal); J44.1 Chronic obstructive pulmonary disease with (acute) exacerbation; E11.9 Type 2 diabetes mellitus without complications; I10 Essential (primary) hypertension; F17.200 Nicotine dependence, unspecified, uncomplicated; Z79.899 Other long term (current) drug therapy
CPT/HCPCS: 71045; 80053; 85025; 96374; 99284; J2930

== ENCOUNTER → 2020-11-27 | Outpatient (CLI) | payer MEDICARE ==
[~2020-11-27] MED LIST: ALBU8.5H; GLIP10TA18; IBUP80TA; INSUHUMDS; LOSA100T50; METF-838; OMEP-221; PRED10TA2 PO; oxygen
== END ==
LOC: M OPCLI4 19:57
PROVIDERS: ATTEND Emergency Medicine
DX: Z53.9 Procedure and treatment not carried out, unspecified reason (principal)

== ENCOUNTER 2020-12-01 07:55 | Outpatient (CLI) | payer MEDICARE ==
[~2020-12-01 07:55] MED LIST changes: +ALBUTEROL 90 MCG/ACT 8GM HFA INHALER INH PRN; +ALBUTEROL SULFATE 2.5 MG/0.5 ML INH NEB SOLN INH PRN; +EPINEPHrine INJ 1 MG/ML 1ML AMP IM PRN; +NS 1,000 ML IV SCH; +diphenhydrAMINE 50MG/ML VIAL (J1200) IV PRN; +methylPREDNISolone 125MG 2ML VIAL IV PRN
[2020-12-01 09:18] VITALS: BP 168/98
[2020-12-01 09:48] VITALS: BP 174/97
[2020-12-01] MEDS ORDERED: ACETAMINOPHEN TAB 650MG DOSE (2X325MG) PO ONE (10:00)
[2020-12-01] MEDS ORDERED: BAMLANIVIMAB 700 MG, ETESEVIMAB 1,400 MG in NS 250 ML IV ONE (10:00)
[2020-12-01 10:18] VITALS: BP_SYST 167; BP_SYST 174; BP_DIAS 93; BP_DIAS 97
[2020-12-01 11:18] VITALS: BP 166/93
== END 2020-12-01 11:18 | disposition home or self-care (01) ==
LOC: M OPCLI4PR 07:55
PROVIDERS: ATTEND Physician Assistant
DX: U07.1 COVID-19 (principal)

== ENCOUNTER → 2021-02-21 | Outpatient (REF) | payer MEDICARE ==
[~2021-02-21] MED LIST changes: -ALBUTEROL 90 MCG/ACT 8GM HFA INHALER INH PRN; -ALBUTEROL SULFATE 2.5 MG/0.5 ML INH NEB SOLN INH PRN; -EPINEPHrine INJ 1 MG/ML 1ML AMP IM PRN; +LOSA100T45; -LOSA100T50; -NS 1,000 ML IV SCH; -OMEP-221; +OMEP40CA5; -diphenhydrAMINE 50MG/ML VIAL (J1200) IV PRN; -methylPREDNISolone 125MG 2ML VIAL IV PRN
== END ==
LOC: M SFHCADAM 16:06
PROVIDERS: ATTEND Physician Assistant
DX: R05.9 Cough, unspecified (principal)

== ENCOUNTER → 2021-03-14 | Outpatient (REF) | payer MEDICARE ==
[2021-03-14 13:19] LABS: HEMATOCRIT 47.5 % (42.0-52.0); HEMOGLOBIN 14.8 g/dl (13.5-17.5); MEAN CORPUSCULAR HEMOGLOBIN 26.4 pg (27.0-33.0); MEAN CORPUSCULAR HGB CONC 31.2 g/dl (32.0-36.5); MEAN CORPUSCULAR VOLUME 84.7 fl (80.0-96.0); PLATELET COUNT, AUTOMATED 208 10^3/uL (150-450); RED BLOOD COUNT 5.61 10^6/uL (4.30-6.10); WHITE BLOOD COUNT 9.3 10^3/uL (4.0-10.0)
[2021-03-14 13:52] LABS: ALBUMIN 3.7 GM/DL (3.2-5.2); ALT/SGPT 31 U/L (12-78); BLOOD UREA NITROGEN 7 MG/DL (7-18); CARBON DIOXIDE LEVEL 32 MEQ/L (21-32); CHLORIDE LEVEL 99 MEQ/L (98-107); CHOLESTEROL LEVEL 191 MG/DL (<200); CREATININE FOR GFR 0.92 MG/DL (0.70-1.30); GLOMERULAR FILTRATION RATE > 60.0 (>49); GLUCOSE, FASTING 191 MG/DL (70-100); HDL CHOLESTEROL 56 MG/DL (>40); HEMOGLOBIN A1c 8.3 %; LDL CHOLESTEROL 100 MG/DL (<100); NON-HDL-C 135 MG/DL; POTASSIUM SERUM 4.4 MEQ/L (3.5-5.1); SODIUM LEVEL 138 MEQ/L (136-145); TOTAL PROTEIN 6.8 GM/DL (6.4-8.2); TRIGLYCERIDES LEVEL 173 MG/DL (<150)
== END ==
LOC: M SFHCADAM 10:55
PROVIDERS: ATTEND Physician Assistant
DX: K92.1 Melena (principal); I10 Essential (primary) hypertension; E78.2 Mixed hyperlipidemia; E11.65 Type 2 diabetes mellitus with hyperglycemia; Z12.5 Encounter for screening for malignant neoplasm of prostate
CPT/HCPCS: 80053; 80061; 83036; 85027; G0103

== ENCOUNTER → 2021-04-13 | Outpatient (CLI) | payer MEDICARE ==
[~2021-04-13] MED LIST changes: -ALBU8.5H; +ALBU8.5H INH; +BASA100I SC; +BAYE81TA7 PO; +FLON1SPR; -GLIP10TA18; +GLIP10TA18 PO; -INSUHUMDS; +INSUHUMDS SC; -LOSA100T45; +LOSA100T45 PO; -METF-838; +METF-838 PO; -OMEP40CA5; +OMEP40CA5 PO
== END ==
LOC: M LABSMTC 09:08
PROVIDERS: ATTEND Anesthesiology
DX: Z01.812 Encounter for preprocedural laboratory examination (principal); Z20.822 Contact with and (suspected) exposure to COVID-19

== ENCOUNTER 2021-04-18 06:53 | Day surgery (SDC) | payer MEDICARE ==
[~2021-04-18] VITALS: Ht 172.7 cm; Wt 139.4 kg
[~2021-04-18 06:53] MED LIST changes: +NS 1,000 ML IV ONE
[2021-04-18] MEDS ORDERED: LIDOCAINE 2% 100MG/5ML SDV (FOR ANES.) As Ordered ONE (07:59)
[2021-04-18] MEDS ORDERED: propofoL 200 MG/20 ML VIAL As Ordered ONE (07:59)
[2021-04-18 08:26] VITALS: BP 132/74
== END 2021-04-18 08:29 | disposition home or self-care (01) ==
LOC: M OPP 06:53
PROVIDERS: ATTEND Internal Medicine Gastroenterology
DX: Z12.11 Encounter for screening for malignant neoplasm of colon (principal); Z86.010 Personal history of colon polyps; K63.5 Polyp of colon; K57.30 Diverticulosis of large intestine without perforation or abscess without bleeding; K64.0 First degree hemorrhoids; Z79.4 Long term (current) use of insulin; Z79.899 Other long term (current) drug therapy; F17.210 Nicotine dependence, cigarettes, uncomplicated; Z98.84 Bariatric surgery status

== ENCOUNTER → 2021-06-17 | Outpatient (REF) | payer MEDICARE ==
[~2021-06-17] MED LIST changes: -NS 1,000 ML IV ONE
[2021-06-17 15:02] LABS: HEMOGLOBIN A1c 9.2 %
== END ==
LOC: M SFHCPLAZ 10:54
PROVIDERS: ATTEND Physician Assistant
DX: E11.65 Type 2 diabetes mellitus with hyperglycemia (principal)

== ENCOUNTER → 2021-09-13 | Outpatient (REF) | payer MEDICARE ==
[2021-09-13 14:09] LABS: ALBUMIN 3.6 GM/DL (3.2-5.2); ALT/SGPT 41 U/L (12-78); BILIRUBIN,TOTAL 0.6 MG/DL (0.2-1.0); BLOOD UREA NITROGEN 6 MG/DL (7-18); CALCIUM LEVEL 8.9 MG/DL (8.8-10.2); CARBON DIOXIDE LEVEL 32 MEQ/L (21-32); CHLORIDE LEVEL 99 MEQ/L (98-107); CHOLESTEROL LEVEL 192 MG/DL (<200); CHOLESTEROL RISK RATIO 4.173 (<5); CREATININE FOR GFR 1.02 MG/DL (0.70-1.30); GLOMERULAR FILTRATION RATE > 60.0 (>49); GLUCOSE, FASTING 188 MG/DL (70-100); HDL CHOLESTEROL 46 MG/DL (>40); LDL CHOLESTEROL 124 MG/DL (<100); NON-HDL-C 146 MG/DL; POTASSIUM SERUM 4.9 MEQ/L (3.5-5.1); SODIUM LEVEL 138 MEQ/L (136-145); TOTAL PROTEIN 6.9 GM/DL (6.4-8.2); TRIGLYCERIDES LEVEL 111 MG/DL (<150)
[2021-09-13 15:19] LABS: HEMOGLOBIN A1c 9.7 %
== END ==
LOC: M SFHCADAM 10:13
PROVIDERS: ATTEND Family Medicine
DX: I10 Essential (primary) hypertension (principal); E78.2 Mixed hyperlipidemia; E11.65 Type 2 diabetes mellitus with hyperglycemia; Z12.5 Encounter for screening for malignant neoplasm of prostate
CPT/HCPCS: 80053; 80061; 83036; G0103

== ENCOUNTER → 2021-12-13 | Outpatient (REF) | payer MEDICARE ==
[2021-12-13 15:42] LABS: ALBUMIN 3.7 GM/DL (3.2-5.2); ALT/SGPT 36 U/L (12-78); BLOOD UREA NITROGEN 10 MG/DL (7-18); CALCIUM LEVEL 8.6 MG/DL (8.8-10.2); CARBON DIOXIDE LEVEL 30 MEQ/L (21-32); CHLORIDE LEVEL 101 MEQ/L (98-107); CREATININE FOR GFR 0.96 MG/DL (0.70-1.30); GLOMERULAR FILTRATION RATE > 60.0 (>49); GLUCOSE, FASTING 168 MG/DL (70-100); POTASSIUM SERUM 4.7 MEQ/L (3.5-5.1); SODIUM LEVEL 138 MEQ/L (136-145); TOTAL PROTEIN 6.8 GM/DL (6.4-8.2)
[2021-12-13 20:59] LABS: HEMOGLOBIN A1c 8.8 %
== END ==
LOC: M SFHCADAM 09:46
PROVIDERS: ATTEND Family Medicine
DX: E11.65 Type 2 diabetes mellitus with hyperglycemia (principal)

== ENCOUNTER → 2022-03-17 | Outpatient (REF) | payer MEDICARE ==
[2022-03-17 13:23] LABS: ALBUMIN 3.8 G/DL (3.2-5.2); ALKALINE PHOSPHATASE 78 U/L (46-116); ALT/SGPT 22 U/L (7.0-40); AST/SGOT < 8 U/L (<34); BILIRUBIN,TOTAL 1.1 MG/DL (0.3-1.2); BLOOD UREA NITROGEN 9 MG/DL (9-23); CALCIUM LEVEL 8.9 MG/DL (8.3-10.6); CARBON DIOXIDE LEVEL 32 MMOL/L (20-31); CHLORIDE LEVEL 100 MMOL/L (98-107); GLOMERULAR FILTRATION RATE > 60.0 (>49); GLUCOSE, FASTING 158 MG/DL (74-106); POTASSIUM SERUM 4.7 MMOL/L (3.5-5.1); SODIUM LEVEL 136 MMOL/L (136-145); TOTAL PROTEIN 6.5 G/DL (5.7-8.2)
== END ==
LOC: M SFHCADAM 10:28
PROVIDERS: ATTEND Family Medicine
DX: E11.65 Type 2 diabetes mellitus with hyperglycemia (principal)

== ENCOUNTER → 2022-04-17 | Outpatient (REF) | payer MEDICARE ==
[2022-04-17 15:50] LABS: CREATININE, URINE 149.1 MG/DL; MAU/CREAT RATIO 148.8 MCG/MG (0.0-30.0)
== END ==
LOC: M SFHCADAM 11:04
PROVIDERS: ATTEND Family Medicine
DX: E11.65 Type 2 diabetes mellitus with hyperglycemia (principal)

== ENCOUNTER → 2022-06-05 | Outpatient (REF) | payer MEDICARE ==
[2022-06-05 14:04] LABS: ALBUMIN 3.8 G/DL (3.2-5.2); ALKALINE PHOSPHATASE 76 U/L (46-116); ALT/SGPT 29 U/L (7.0-40); AST/SGOT < 8 U/L (<34); BILIRUBIN,TOTAL 1.2 MG/DL (0.3-1.2); BLOOD UREA NITROGEN 9 MG/DL (9-23); CALCIUM LEVEL 8.9 MG/DL (8.3-10.6); CARBON DIOXIDE LEVEL 33 MMOL/L (20-31); CHLORIDE LEVEL 100 MMOL/L (98-107); CREATININE FOR GFR 0.83 MG/DL (0.70-1.30); GLOMERULAR FILTRATION RATE > 60.0 (>49); GLUCOSE, FASTING 174 MG/DL (74-106); POTASSIUM SERUM 4.9 MMOL/L (3.5-5.1); SODIUM LEVEL 136 MMOL/L (136-145); TOTAL PROTEIN 6.7 G/DL (5.7-8.2)
== END ==
LOC: M SFHCADAM 10:39
PROVIDERS: ATTEND Family Medicine
DX: E11.65 Type 2 diabetes mellitus with hyperglycemia (principal)

== ENCOUNTER → 2022-06-07 | Outpatient (REF) | payer MEDICARE ==
[~2022-06-07] MED LIST changes: -LOSA100T45 PO; +LOSA100T46 PO
[2022-06-07 13:51] LABS: HEMOGLOBIN A1c 9.6 % (4.0-6.0)
== END ==
LOC: M SFHCADAM 10:28
PROVIDERS: ATTEND Family Medicine
DX: E11.65 Type 2 diabetes mellitus with hyperglycemia (principal)

== ENCOUNTER → 2022-10-24 | Outpatient (CLI) | payer MEDICARE | LOC: M RAD 12:26 | PROVIDERS: ATTEND Nurse Practitioner Family | DX: Z12.2 Encounter for screening for malignant neoplasm of respiratory organs (principal); F17.211 Nicotine dependence, cigarettes, in remission; R91.8 Other nonspecific abnormal finding of lung field; J84.9 Interstitial pulmonary disease, unspecified ==

== ENCOUNTER → 2023-12-10 | Outpatient (CLI) | payer MEDICARE | LOC: M RAD 10:13 | PROVIDERS: ATTEND Nurse Practitioner Family | DX: Z12.2 Encounter for screening for malignant neoplasm of respiratory organs (principal); F17.210 Nicotine dependence, cigarettes, uncomplicated; J98.11 Atelectasis; J43.2 Centrilobular emphysema; R91.8 Other nonspecific abnormal finding of lung field; J84.10 Pulmonary fibrosis, unspecified; I70.0 Atherosclerosis of aorta ==

== ENCOUNTER 2024-03-26 08:33 | Day surgery (SDC) | payer MEDICARE ==
[~2024-03-26] VITALS: Ht 172.7 cm; Wt 141.2 kg
[~2024-03-26 08:33] MED LIST changes: +ATOR40TA75 PO; +FLUTISP; +SEMA2PEN SQ; +VITA100093 PO
[2024-03-26 09:57] VITALS: TEMP 97.8
[2024-03-26 10:22] VITALS: BP 162/90; O2SAT 98
== END 2024-03-26 10:25 | disposition home or self-care (01) ==
LOC: M OPP 08:33
PROVIDERS: ATTEND Internal Medicine Gastroenterology
DX: D12.2 Benign neoplasm of ascending colon (principal); K57.30 Diverticulosis of large intestine without perforation or abscess without bleeding; K64.0 First degree hemorrhoids; Z86.0100 Personal history of colon polyps, unspecified; Z79.4 Long term (current) use of insulin; Z79.82 Long term (current) use of aspirin; Z79.84 Long term (current) use of oral hypoglycemic drugs; Z79.85 Long-term (current) use of injectable non-insulin antidiabetic drugs; Z79.899 Other long term (current) drug therapy; J44.9 Chronic obstructive pulmonary disease, unspecified; Z98.84 Bariatric surgery status

== ENCOUNTER → 2025-01-26 | Outpatient (CLI) | payer MEDICARE ==
[~2025-01-26] MED LIST changes: +GLIP-320 PO; -GLIP10TA18 PO
== END ==
LOC: M RAD 15:37
PROVIDERS: ATTEND Nurse Practitioner Family
DX: Z87.891 Personal history of nicotine dependence (principal)